=== PATIENT | female | born 1935 | race Caucasian/White ===

== ENCOUNTER → 2022-08-16 12:49 | Outpatient (BNVA) | payer OTHER, SELFPAY | PROVIDERS: PCP Student in an Organized Health Care Education/Training Program; Visit Provider Psychiatry & Neurology Neurology | DX: Z13.89 Encounter for screening for other disorder (principal) ==

== ENCOUNTER → 2022-09-02 09:36 | Outpatient (REF) | payer OTHER, SELFPAY | LOC: HO.SL 09:36 | PROVIDERS: PCP Student in an Organized Health Care Education/Training Program; Visit Provider Psychiatry & Neurology Neurology | DX: G47.33 Obstructive sleep apnea (adult) (pediatric) (principal) | CPT/HCPCS: 95806 ==

== ENCOUNTER 2022-11-30 12:30 | Outpatient (AMB) | payer OTHER, SELFPAY ==
[2022-11-30 12:32] VITALS: BP 108/86; PULSE 77; O2SAT 97; BMI 27.8
--- NOTE | 2022-11-30 12:32 | MHC.OFFVIS ---
Intake Vital Signs 11/30/22 12:32 Height 5 ft 1 in Weight 147 lb 4 oz BMI 27.8 BP 108/86 Blood Pressure Location Lt brachial Position Sitting Pulse 77 Pulse Source Pulse Oximeter Pulse Oximetry (%) 97 Oxygen Delivery Method Room Air Intake Visit Reasons: 3 mo for - Alzheimets/Dementia-confirmed Intake Note: Pt presents as a f/u for alzheimers/dementia. diarrhea is the reoccurring thing. And the new thing is she is wearing hearing aids now. Director Of Premium Seat Sales Required: No Allergies Sulfa (Sulfonamide Antibiotics) Adverse Reaction (Severe, Verified 11/30/22 12:37) Rash vancomycin Adverse Reaction (Severe, Verified 11/30/22 12:37) Rash ceftriaxone Adverse Reaction (Unknown, Verified 11/30/22 12:37) Unknown HPI HPI Comments History of Present Illness Details 87y/o female comes for further management of dementia.she castellanos shearing aids but feels it is too loud.she did not take citaopram regularly due to GI issues - diarrhea. Her home sleep study was significant for mild sleep apnea. SHe did not pick her CPAP she is accompanied by her son who helps with history. Her memory issues started about 5 years ago. 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 she is independent in most ADLs. her daughter in law helps with getting in and out of shower. she needs reminding to dress. 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 Mood stable - not motivated sleep is OK - she wakes up late 12noon and takes 2 hrs nap and sleeps at 11pm . she sleeps 1 2hrs a day. she snores loudly . [facility] Medical History (Updated 11/30/22 @ 12:52 by Gwen Mitchell MD) Atrial fibrillation CAD (coronary artery disease) Cognitive disorder Depression Diverticulosis Gall stones Hypersomnolence Hypothyroidism Loud snoring Lumbar spondylosis Mitral regurgitation Obstructive sleep apnea Uterine myoma Surgical History H/O lithotripsy Hx of appendectomy S/P removal of parathyroid gland Family History Mother Stroke Father Myocardial infarct Daughter Breast cancer Social History Alcohol intake: current Alcohol intake frequency: holidays/special occasions only Patient Tobacco Use Status: Never used Tobacco Use of substances other than those prescribed or required for medical reasons: No Physical Exam Vital Signs: Last Vital Signs Pulse 77 11/30/22 12:32 BP 108/86 11/30/22 12:32 Pulse Ox 97 11/30/22 12:32 Oxygen Delivery Method Room Air 11/30/22 12:32 BMI result Body Mass Index 27.8 Const Orientation/consciousness: patient oriented x3 HEENT Head: Yes normal to inspection and Yes normocephalic Eyes Pupils: Equal, round and reactive pupils present Neuro Other: mild hypohonia General: patient oriented x3, tone normal, moves all extremities and no focal motor deficits Cranial nerves: Yes Facial sensation intact/muscles of mastication intact, Yes Equal, round and reactive pupils present, Yes Bilaterally intact EOM present, Yes Nystagmus not present, Yes Normal facial strength present, Yes Midline tongue present, Yes Symmetric palate elevation present and Yes Ability to bilaterally elevate shoulders present Cognition (Neuro): normal cognition Gait exam (Neuro): Antalgic gait present and Festinating gait present Coordination: [id number] test normal Assessment & Plan Assessment & Plan (1) Cognitive disorder: Comment: multifactorial - mood, ? sleep apnea ? low blood pressure Code(s): F09 - Unspecified mental disorder due to known physiological condition (2) Depression: Code(s): F32.A - Depression, unspecified (3) Obstructive sleep apnea: Code(s): G47.33 - Obstructive sleep apnea (adult) (pediatric) Plan Trial AUtoPAP 5-20 cm of water- she is concerned about using mask. Retrial citalopram 10mg qd- concerned about GI side effects Patient says she does not like medications but will try citalopram Discussed about increasing physical activity Hearing aids Coding Level of Care Code Est Pt Level 4 (71098) Diagnoses Cognitive disorder F09 Depression F32.A Obstructive sleep apnea G47.33
== END 2022-11-30 13:30 | disposition home or self-care (01) ==
PROVIDERS: Visit Provider Psychiatry & Neurology Neurology
DX: I69.320 Aphasia following cerebral infarction (principal); F32.A Depression, unspecified; G47.33 Obstructive sleep apnea (adult) (pediatric)
CPT/HCPCS: 99214

== ENCOUNTER → 2022-11-30 12:30 | Outpatient (BNVA) | payer OTHER, SELFPAY | PROVIDERS: Visit Provider Psychiatry & Neurology Neurology ==

== ENCOUNTER 2023-02-09 15:33 | Outpatient (AMB) | payer OTHER, SELFPAY ==
--- NOTE | 2023-02-09 15:32 | MHC.OFFVIS ---
Intake Vital Signs 02/09/23 15:34 Height 5 ft 1 in Weight 142 lb BMI 26.8 BP 112/62 Blood Pressure Location Lt brachial Position Sitting Respiration 16 Pulse 76 Pulse Source Pulse Oximeter Pulse Oximetry (%) 97 Oxygen Delivery Method Room Air Intake Visit Reasons: Follow up- Alzhimers/Dementia Intake Note: Pt presents to the office for a 2 month follow up for Alzheimer's and dementia. She is here with son Garland. Son reports he feels her memory is worse. He does state, however, that he has noticed improvement with her depression. Her mood is better but her memory is worse . Software Implementation Project Manager Required: No Allergies Sulfa (Sulfonamide Antibiotics) Adverse Reaction (Severe, Verified 02/09/23 15:33) Rash vancomycin Adverse Reaction (Severe, Verified 02/09/23 15:33) Rash ceftriaxone Adverse Reaction (Unknown, Verified 02/09/23 15:33) Unknown Medication List - Last Reconciled 02/09/23 by Gwen Mitchell MD apixaban (Eliquis) 2.5 mg PO BID Bacillus coagulans (Digestive Advantage Probiotics-Prebiotic) cells PO cholecalciferol (vitamin D3) 37.5 mcg PO DAILY citalopram 10 mg PO DAILY denosumab (Prolia) 60 mg subcut [id number] methenamine hippurate 1 g PO BID metoprolol succinate ER 100 mg PO DAILY zpeuyvpi-puv-WW-lycopen-lutein 0.4 mg-300 mcg- 250 mcg (Centrum Silver) 1 tab PO DAILY HPI HPI Comments History of Present Illness Details 87y/o female comes for follow up of dementia.she has hearing aids but feels it is too loud.she got CPAP but unable to use it but is back on citalopram which helps her mood. she does not use her hearing aids . she is accompanied by her son who helps with history. Her memory issues started about 5 years ago. 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 She started with short term memory issues and now also has shelter issues.she has trouble remembering medications,has trouble recalling peoples names,has trouble remembering significant events( forgets trips, forgot she had stroke).she like watching sports but usually has trouble remembering. she is independent in most ADLs. her daughter in law helps with getting in and out of shower. she needs reminding to dress. 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 Mood stable - not motivated sleep is OK - she wakes up late 12noon and takes 2 hrs nap and sleeps at 11pm . she sleeps 1 2hrs a day. she snores loudly . [facility] Medical History Obstructive sleep apnea Depression Hypersomnolence Loud snoring Cognitive disorder Uterine myoma Mitral regurgitation Lumbar spondylosis Hypothyroidism Gall stones Diverticulosis CAD (coronary artery disease) Atrial fibrillation Surgical History S/P removal of parathyroid gland H/O lithotripsy Hx of appendectomy Family History Mother Stroke Father Myocardial infarct Daughter Breast cancer Social History Alcohol intake: current Alcohol intake frequency: holidays/special occasions only Patient Tobacco Use Status: Never used Tobacco Physical Exam Vital Signs: Last Vital Signs Pulse 76 02/09/23 15:34 Resp 16 02/09/23 15:34 BP 112/62 02/09/23 15:34 Pulse Ox 97 02/09/23 15:34 Oxygen Delivery Method Room Air 02/09/23 15:34 BMI result Body Mass Index 26.8 Const Orientation/consciousness: patient oriented x3 HEENT Head: Yes normal to inspection and Yes normocephalic Eyes Pupils: Equal, round and reactive pupils present Neuro Other: mild hypohonia General: patient oriented x3, tone normal, moves all extremities and no focal motor deficits Cranial nerves: Yes Facial sensation intact/muscles of mastication intact, Yes Equal, round and reactive pupils present, Yes Bilaterally intact EOM present, Yes Nystagmus not present, Yes Normal facial strength present, Yes Midline tongue present, Yes Symmetric palate elevation present and Yes Ability to bilaterally elevate shoulders present Cognition (Neuro): normal cognition Gait exam (Neuro): Antalgic gait present and Festinating gait present Coordination: [id number] test normal Assessment & Plan Assessment & Plan (1) Cognitive disorder: Comment: multifactorial - mood, ? sleep apnea ? low blood pressure Code(s): F09 - Unspecified mental disorder due to known physiological condition (2) Depression: Code(s): F32.A - Depression, unspecified (3) Obstructive sleep apnea: Code(s): G47.33 - Obstructive sleep apnea (adult) (pediatric) Plan Retrial memantine XR 14mg qd citalopram 10mg qd- Discussed about increasing physical activity Hearing aids Medications: New memantine 14 mg PO DAILY 30 ea 6RF Coding Level of Care Code Est Pt Level 4 (74086) Diagnoses Cognitive disorder F09 Depression F32.A Obstructive sleep apnea G47.33
[2023-02-09 15:34] VITALS: BP 112/62; PULSE 76; RESP 16; O2SAT 97; BMI 26.8
== END 2023-02-09 16:07 | disposition home or self-care (01) ==
PROVIDERS: PCP Student in an Organized Health Care Education/Training Program; Visit Provider Psychiatry & Neurology Neurology
DX: F03.93 Unspecified dementia, unspecified severity, with mood disturbance (principal); F06.31 Mood disorder due to known physiological condition with depressive features; G47.33 Obstructive sleep apnea (adult) (pediatric); I69.320 Aphasia following cerebral infarction
CPT/HCPCS: 99214

== ENCOUNTER → 2023-02-09 15:33 | Outpatient (BNVA) | payer OTHER, SELFPAY | PROVIDERS: PCP Student in an Organized Health Care Education/Training Program; Visit Provider Psychiatry & Neurology Neurology ==

== ENCOUNTER 2023-08-08 13:43 | Outpatient (AMB) | payer OTHER, SELFPAY ==
--- NOTE | 2023-08-08 13:44 | HO.NEPHOV ---
Vital Signs 08/08/23 13:48 Height 5 ft 1 in Weight 140 lb 8 oz BMI 26.5 BP 100/60 Blood Pressure Location Rt brachial Position Sitting Pulse 79 Pulse Source Pulse Oximeter Pulse Oximetry (%) 97 Oxygen Delivery Method Room Air Intake Visit Reasons: 6 mo f/u Alzheimers/Dementia-CONF Intake Note: Patient presents for a 6 month fu- Cognitive Disorder Extruding Press Adjuster Required: No Accompanied by: Son Allergies Sulfa (Sulfonamide Antibiotics) Adverse Reaction (Severe, Verified 08/08/23 13:51) Rash vancomycin Adverse Reaction (Severe, Verified 08/08/23 13:51) Rash ceftriaxone Adverse Reaction (Unknown, Verified 08/08/23 13:51) Unknown PFSH Medical History Obstructive sleep apnea Depression Hypersomnolence Loud snoring Cognitive disorder Uterine myoma Mitral regurgitation Lumbar spondylosis Hypothyroidism Gall stones Diverticulosis CAD (coronary artery disease) Atrial fibrillation Surgical History S/P removal of parathyroid gland H/O lithotripsy Hx of appendectomy Family History Mother Stroke Father Myocardial infarct Daughter Breast cancer Social History Alcohol intake: current Alcohol intake frequency: holidays/special occasions only Patient Tobacco Use Status: Never used Tobacco Physical Exam Vital Signs: Last Vital Signs Pulse 79 08/08/23 13:48 BP 100/60 08/08/23 13:48 Pulse Ox 97 08/08/23 13:48 Oxygen Delivery Method Room Air 08/08/23 13:48 BMI result Body Mass Index 26.5 Results Reviewed Nephrology Results: No Data to Display
[2023-08-08 13:48] VITALS: BP 100/60; PULSE 79; O2SAT 97; BMI 26.5
[2023-08-08 13:55] VITALS: BMI 26.5
--- NOTE | 2023-08-08 13:55 | A.OFFVIS_ITS ---
Vital Signs 08/08/23 13:48 08/08/23 13:55 Height 5 ft 1 in Weight 140 lb 8 oz BMI 26.5 26.5 BP 100/60 Blood Pressure Location Rt brachial Position Sitting Pulse 79 Pulse Source Pulse Oximeter Pulse Oximetry (%) 97 Oxygen Delivery Method Room Air Intake Visit Reasons: 6 mo f/u Alzheimers/Dementia-CONF Allergies Sulfa (Sulfonamide Antibiotics) Adverse Reaction (Severe, Verified 08/08/23 13:51) Rash vancomycin Adverse Reaction (Severe, Verified 08/08/23 13:51) Rash ceftriaxone Adverse Reaction (Unknown, Verified 08/08/23 13:51) Unknown Medication List - Last Reconciled 08/08/23 by Gwen Mitchell MD apixaban (Eliquis) 5 mg PO BID Bacillus coagulans (Digestive Advantage Probiotics-Prebiotic) cells PO cholecalciferol (vitamin D3) 37.5 mcg PO DAILY citalopram 10 mg PO DAILY denosumab (Prolia) 60 mg subcut [id number] memantine 14 mg PO DAILY methenamine hippurate 1 g PO DAILY metoprolol succinate ER 50 mg PO DAILY jwtczpaa-xtb-JR-lycopen-lutein 0.4 mg-300 mcg- 250 mcg (Centrum Silver) 1 tab PO DAILY HPI Comments Details: 88y/o female comes for follow up of dementia.she has hearing aids but feels it is too loud.she got CPAP but unable to use it but is back on citalopram which helps her mood. she does not use her hearing aids . she is accompanied by her son who helps with history. Her memory issues started about 6 years ago. 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 she is independent in most ADLs. her daughter in law helps with getting in and out of shower. she needs reminding to dress. 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 she sleeps 1 2hrs a day. she snores loudly . [facility] Medical History Obstructive sleep apnea Depression Hypersomnolence Loud snoring Cognitive disorder Uterine myoma Mitral regurgitation Lumbar spondylosis Hypothyroidism Gall stones Diverticulosis CAD (coronary artery disease) Atrial fibrillation Surgical History S/P removal of parathyroid gland H/O lithotripsy Hx of appendectomy Family History Mother Stroke Father Myocardial infarct Daughter Breast cancer Social History Alcohol intake: current Alcohol intake frequency: holidays/special occasions only Patient Tobacco Use Status: Never used Tobacco Physical Exam Vital Signs: Last Vital Signs Pulse 79 08/08/23 13:48 BP 100/60 08/08/23 13:48 Pulse Ox 97 08/08/23 13:48 Oxygen Delivery Method Room Air 08/08/23 13:48 BMI result Body Mass Index 26.5 HEENT Head: Yes normal to inspection and Yes normocephalic Eyes Pupils: Equal, round and reactive pupils present Neuro Other: mild hypohonia MOCA 18/30 General: tone normal, moves all extremities and no focal motor deficits Cranial nerves: Yes Facial sensation intact/muscles of mastication intact, Yes Equal, round and reactive pupils present, Yes Bilaterally intact EOM present, Yes Nystagmus not present, Yes Normal facial strength present, Yes Midline tongue present, Yes Symmetric palate elevation present and Yes Ability to bilaterally elevate shoulders present Cognition (Neuro): normal cognition Gait exam (Neuro): Antalgic gait present and Festinating gait present Coordination: tozzqc-of-jali test normal Assessment & Plan Assessment & Plan (1) Cognitive disorder: Comment: multifactorial - mood, ? sleep apnea ? low blood pressure- mOCA 18/30 Code(s): F09 - Unspecified mental disorder due to known physiological condition Category: Medical (2) Depression: Code(s): F32.A - Depression, unspecified Category: Medical (3) Obstructive sleep apnea: Code(s): G47.33 - Obstructive sleep apnea (adult) (pediatric) Category: Medical Plan Increase memantine XR 21mg qd citalopram 10mg qd- Discussed about increasing physical activity Hearing aids [facility] - for PT and speech Orders: Referrals [facility] Referral F09 - Unspecified mental disorder due to known physiological condition, M47.816 - Spondylosis without myelopathy or radiculopathy, lumbar region, R26.9 - Unspecified abnormalities of gait and mobility Medications: Changed From memantine 14 mg PO DAILY 30 ea 6RF To memantine 14 mg (0.6667 x 21 mg) PO DAILY 30 ea 1RF
== END 2023-08-08 14:28 | disposition home or self-care (01) ==
LOC: HO.HSMS 13:43
PROVIDERS: PCP Student in an Organized Health Care Education/Training Program; Visit Provider Psychiatry & Neurology Neurology
DX: F03.93 Unspecified dementia, unspecified severity, with mood disturbance (principal); R41.89 Other symptoms and signs involving cognitive functions and awareness; G47.33 Obstructive sleep apnea (adult) (pediatric)
CPT/HCPCS: 99214

== ENCOUNTER → 2023-08-08 13:43 | Outpatient (BNVA) | payer OTHER, SELFPAY | PROVIDERS: PCP Student in an Organized Health Care Education/Training Program; Visit Provider Psychiatry & Neurology Neurology ==

== ENCOUNTER 2024-02-07 12:14 | Outpatient (AMB) | payer OTHER, SELFPAY ==
--- NOTE | 2024-02-07 12:19 | A.OFFVIS_ITS ---
Vital Signs 02/07/24 12:23 Height 5 ft 1 in Weight 143 lb BMI 27.0 BP 80/50 L Blood Pressure Location Lt brachial Position Sitting Pulse 83 Pulse Source Pulse Oximeter Pulse Oximetry (%) 96 Oxygen Delivery Method Room Air Intake Visit Reasons: follow up Alzheimers/Dementia Intake Note: Patient presents for a 6 mo fu for Alzheimer/Dementia. Patient reports tiredness, SOB, and difficulty breathing. Geoscience Specialist Required: No Accompanied by: Son Allergies Sulfa (Sulfonamide Antibiotics) Adverse Reaction (Severe, Verified 02/07/24 12:25) Rash vancomycin Adverse Reaction (Severe, Verified 02/07/24 12:25) Rash ceftriaxone Adverse Reaction (Unknown, Verified 02/07/24 12:25) Unknown Medication List - Last Reconciled 02/07/24 by Gwen Mitchell MD apixaban (Eliquis) 5 mg PO BID Bacillus coagulans (Probiotic (B. coagulans)) cells PO DAILY cholecalciferol (vitamin D3) 25 mcg PO DAILY citalopram 10 mg PO DAILY 90 days denosumab (Prolia) 60 mg subcut [id number] memantine 28 mg PO DAILY 90 days methenamine hippurate 1 g PO DAILY metoprolol succinate ER 50 mg PO DAILY qfkjpxng-jri-NM-lycopen-lutein 0.4 mg-300 mcg- 250 mcg (Centrum Silver) 1 tab PO DAILY HPI Comments Details: 88y/o female comes for follow up of dementia.she has hearing aids and it helps.Her short term memory is worse. she is still noncompliant with hearing aids and her son feels that she does not hear most of the things. she saw her PCP and has been referred for home PT she got CPAP but unable to use it but is back on citalopram which helps her mood. History from last visit:she is accompanied by her son who helps with history. Her memory issues started about 6 years ago. 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 she is independent in most ADLs. her daughter in law helps with getting in and out of shower. she needs reminding to dress. 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 she sleeps 1 2hrs a day. she snores loudly . PFSH Medical History Obstructive sleep apnea Depression Hypersomnolence Loud snoring Cognitive disorder Uterine myoma Mitral regurgitation Lumbar spondylosis Hypothyroidism Gall stones Diverticulosis CAD (coronary artery disease) Atrial fibrillation Surgical History S/P removal of parathyroid gland H/O lithotripsy Hx of appendectomy Family History Mother Stroke Father Myocardial infarct Daughter Breast cancer Social History Alcohol intake: current Alcohol intake frequency: holidays/special occasions only Patient Tobacco Use Status: Never used Tobacco Physical Exam Vital Signs: Last Vital Signs Pulse 83 02/07/24 12:23 BP 80/50 L 02/07/24 12:23 Pulse Ox 96 02/07/24 12:23 Oxygen Delivery Method Room Air 02/07/24 12:23 BMI result Body Mass Index 27.0 HEENT Head: Yes normal to inspection and Yes normocephalic Eyes Pupils: Equal, round and reactive pupils present Neuro General: tone normal, moves all extremities and no focal motor deficits Cranial nerves: Yes Facial sensation intact/muscles of mastication intact, Yes Equal, round and reactive pupils present, Yes Bilaterally intact EOM present, Yes Nystagmus not present, Yes Normal facial strength present and Yes Midline tongue present Cognition (Neuro): abnormal cognition Coordination: [id number] test normal Assessment & Plan Assessment & Plan (1) Cognitive disorder: Comment: multifactorial - mood, ? sleep apnea ? low blood pressure- mOCA Code(s): F09 - Unspecified mental disorder due to known physiological condition Category: Medical (2) Depression: Code(s): F32.A - Depression, unspecified Category: Medical Qualifiers: Depression Type: unspecified Qualified Code(s): F32.A - Depression, unspecified (3) Obstructive sleep apnea: Code(s): G47.33 - Obstructive sleep apnea (adult) (pediatric) Category: Medical Plan Increase memantine XR 28mg qd citalopram 10mg qd-does not get consistently Will send for second opinion - [facility] cardiology for MR and Atrial fibrillation Discussed about increasing physical activity Hearing aids VNA - for PT and speech- referred by PCP Orders: Referrals Interventional Cardiology Referral I34.0 - Nonrheumatic mitral (valve) insuff iciency Medications: Changed From memantine 21 mg PO DAILY 90 days 90 ea 1RF To memantine 28 mg PO DAILY 90 days 90 ea 1RF Coding Level of Care Code Est Pt Level 4 (58430) Complex EM visit Add On G2211 Diagnoses Cognitive disorder F09 Depression, unspecified depression type F32.A Depression Type: unspecified Obstructive sleep apnea G47.33
[2024-02-07 12:23] VITALS: BP 80/50; PULSE 83; O2SAT 96; BMI 27.0
== END 2024-02-07 13:01 | disposition home or self-care (01) ==
PROVIDERS: PCP Student in an Organized Health Care Education/Training Program; Visit Provider Psychiatry & Neurology Neurology
DX: G47.33 Obstructive sleep apnea (adult) (pediatric) (principal); F32.A Depression, unspecified; F09 Unspecified mental disorder due to known physiological condition
CPT/HCPCS: 99214; G2211

== ENCOUNTER → 2024-02-07 12:14 | Outpatient (BNVA) | payer OTHER, SELFPAY | PROVIDERS: PCP Student in an Organized Health Care Education/Training Program; Visit Provider Psychiatry & Neurology Neurology | DX: F09 Unspecified mental disorder due to known physiological condition (principal); M47.816 Spondylosis without myelopathy or radiculopathy, lumbar region; R26.9 Unspecified abnormalities of gait and mobility; F32.A Depression, unspecified; G47.33 Obstructive sleep apnea (adult) (pediatric) ==

== ENCOUNTER 2025-01-15 14:26 | Outpatient (AMB) | payer OTHER, SELFPAY ==
--- OUTSIDE RECORDS SUMMARY | 2025-01-11 10:50 | XMS_ITS | Encounter Summary ---
Author Organization [facility] Address [address] [place] [address] Care Team Providers Care Practice Performance Manager Name Role Phone Kasey Anand MD Primary Care Provider Reason for Referral * Imaging (Routine) - Authorized Specialty Diagnoses / Procedures Referred By Contac t Referred To Contact Radiology Diagnoses Age-related osteoporosis without current pathological fracture Procedures BD Bone Density DXA Axial Skeleton Marlin Xiong MD [address] [place] [phone] Phone: tel: fax: [facility] Referral ID Status Reason Start Date Expiration Date V isits Requested Visits Authorized [id number] Authorized 06/28/2024 06/28/2025 1 1 Reason for Visit * Imaging (Routine) - Authorized Specialty Diagnoses / Procedures Referred By Contac t Referred To Contact Radiology Diagnoses Age-related osteoporosis without current pathological fracture Procedures BD Bone Density DXA Axial Skeleton Marlin Xiong MD [address] [place] [address] Phone: tel: fax: [facility] Referral ID Status Reason Start Date Expiration Date V isits Requested Visits Authorized [id number] Authorized 06/28/2024 06/28/2025 1 1 Encounter Details Date Type Department Care Team (Latest Contact Info) Description 01/11/2025 10:50 AM EDT - 01/11/2025 11:59 PM EDT Hospital Encounter Bone Density - [place] [address] [place] [phone] Age-related osteoporosis without current pathological fracture Discharge Disposition: Home or Self Care Social History Tobacco Use Types Packs/Day Years Used Date Smoking Tobacco: Never Smokeless Tobacco: Never Alcohol Use Standard Drinks/Week Comments Yes 1 (1 standard drink = 0.6 oz pur e alcohol) Housing Instability Answer Date Recorde d Are you worried that in the next 2 months you may not have stable housing? No 05/23/2024 Food Access & Nutrition Answer Date Rec orded Do you have access to a vari ety of food including fruits and vegetables? Yes 05/23/2024 Access to Healthcare Answer Date Record ed Within the last 3 months, ho w many times did you visit the emergency department for your medical care? 0 05/23/2024 Health Literacy Answer Date Recorded How often do you need to hav e someone help you when you read instructions, pamphlets, or other written material from your doctor or pharmacy? Sometimes 05/23/2024 Caregiver: How often do you need to have someone help you when you read instructions, pamphlets, or other written material from your doctor or pharmacy? Not on file 05/23/2024 Financial Risk Answer Date Recorded How hard is it for you to pa y for the very basics like food, housing, medical care, and air conditioning / heating? Not very hard 05/23/2024 Transportation Answer Date Recorded Has the lack of transportati on kept you from meetings, work, or from getting things needed for daily living? No Has the lack of transportati on kept you from medical appointments or from getting medications? No 05/23/2024 Social Isolation Answer Date Recorded How often do you feel lonely or isolated from th ose around you? Never 05/23/2024 Food Risk Answer Date Recorded Within the past 12 months we worried whether our food would run out before we got money to buy more. Never true 05/23/2024 Within the past 12 months th e food we bought just didn't last and we didn't have money to get more. Never true 05/23/2024 Dependent Care Answer Date Recorded Do you need help finding or paying for care for your loved ones. For example, child care centre director or elderly care for an older adult? No 05/23/2024 Education Answer Date Recorded Do you think completing more education or training, like finishing a GED, going to college, or learning a trade, would be helpful for you? No 05/23/2024 Employment and Income Answer Date Recor ded During the last four weeks, have you been actively looking for work? No 05/23/2024 Living Situation Answer Date Recorded What is your living situation? Unrecognized valu e 05/23/2024 Comments No Sex and Gender Information Value Date Recorded Sex Assigned at Not on file Legal Sex Female 11:37 AM EST Gender Identity Not on file Sexual Orientation Not on file documented as of this encounter Medications at Time of Discharge acetaminophen (TYLENOL) 325 mg tablet Take by mouth every 6 (six) hours if needed for mild pain. apixaban (ELIQUIS) 2.5 mg tablet Take 1 tablet (2.5 mg total) by mouth 2 (two) times a day. cholecalciferol (VITAMIN D-3) 50 mcg (2,000 unit) tablet Take 1 tablet (2,000 Units total) by mouth 1 (one) time each day. citalopram (CeleXA) 10 mg tablet Take 1 tablet (10 mg total) by mouth 1 (one) time each day. Take 1 tablet (10 mg total) by mouth daily lactobacillus acidoph-l.bulgar 100 million cell granules in packet Take 1 packet by mouth. methenamine hippurate (HIPREX) 1 gram tabletIndications :Urinary tract infection, site not specified TAKE 1 TABLET BY MOUTH EVERY DAY 90 tablet 01/07/2025 midodrine (PROAMATINE) 5 mg tablet TAKE 1 TABLET BY MOUTH TWICE A DAY 180 tablet 1 12/18/2024 multivitamin with minerals tablet Take 1 tablet by mouth 1 (one) time each day. Prolia 60 mg/mL syringe syringe INJECT 1 SYRINGE UNDER THE SKIN ONCE EVERY 6 MONTHS 60 mL 1 05/22/2024 documented as of this encounter Discharge Disposition Disposition Code Departure Means Destination Home or Self Care documented in this encounter Plan of Treatment Upcoming Encounters Date Type Department Care Team (Late st Contact Info) Description 01/21/2025 11:00 AM EDT Office Visit [facility]ocr[facility] [place] [address] [place] [phone] Marlin Xiong MD [address] [place] [address] 01/21/2025 12:00 PM EDT Clinical Support Endocrinology - [place] [address] [place] [address] 02/14/2025 1:40 PM EDT Office Visit [facility] [address] [facility] [address] [place] [phone] Caridad Porter [facility] [place] [phone] 03/05/2025 3:30 PM EST Office Visit Adult Medicine - [place] [address] [place] [phone] Oziel Preciado PA [address] [place] [address] Pending Results Name Type Priority Associated Diagnoses Date /Time BD Bone Density DXA Axial Skeleton Imaging Routine Age-related osteoporosis without current pathological fracture 01/11/2025 11:17 AM EDT Scheduled Orders Name Type Priority Associated Diagnoses Orde r Schedule BD Bone Density DXA Axial Skeleton Imaging Routine Age-related osteoporosis without current pathological fracture Once for 1 Occurrences starting 01/11/2025 until 01/11/2025 documented as of this encounter Visit Diagnoses Diagnosis Age-related osteoporosis without current pathological fracture documented in this encounter Additional Health Concerns Assessment Noted Time PHQ-9 Depression Total Score: 0 05/23/19 8:26 AM EST A fall risk assessment has been complete d for the patient 05/23/2024 10:30 AM EST documented as of this encounter Care Teams Practice Performance Manager Relationship Specialty Start Date End Date Kasey Anand MD [address] [place] [address] PCP - General Internal Medicine 05/14/24 documented as of this encounter
--- NOTE | 2025-01-15 14:19 | MHC.OFFVIS ---
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 coagulans)) cells PO DAILY cholecalciferol (vitamin D3) 25 mcg PO DAILY citalopram 10 mg PO DAILY 90 days denosumab (Prolia) 60 mg subcut [id number] methenamine hippurate 1 g PO DAILY midodrine 5 mg PO BID fmugfmep-ujz-AT-lycopen-lutein 0.4 mg-300 mcg- 250 mcg (Centrum Silver) 1 tab PO DAILY HPI Comments Details: 89y/o female comes for follow up of dementia. In October 2024 she was admitted for failure to thrive . she refuses to eat and drinks 2 ensures she is refusing to eat sweets . Memantine and metroprolol was stopped as her blood pressure was low. she has hearing aids and it helps.Her short term memory is worse. History from last visit:she is accompanied by her son who helps with history. Her memory issues started about 6 years ago. 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 She started with short term memory issues and now also has manager long term care issues.she has trouble remembering medications,has trouble recalling peoples names,has trouble remembering significant events( forgets trips, forgot she had stroke).she like watching sports but usually has trouble remembering. she is independent in most ADLs. her daughter in law helps with getting in and out of shower. she needs reminding to dress. 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 she sleeps 1 2hrs a day. she snores loudly . [facility] Medical History Obstructive sleep apnea Depression Hypersomnolence Loud snoring Cognitive disorder Uterine myoma Mitral regurgitation Lumbar spondylosis Hypothyroidism Gall stones Diverticulosis CAD (coronary artery disease) Atrial fibrillation Surgical History S/P removal of parathyroid gland H/O lithotripsy Hx of appendectomy Family History Mother Stroke Father Myocardial infarct Daughter Breast cancer Social History Alcohol intake: current Alcohol intake frequency: holidays/special occasions only Patient Tobacco Use Status: Never used Tobacco Physical Exam HEENT Head: Yes normal to inspection and Yes normocephalic Neuro Other: gait- walker , good stride stable Telehealth Telehealth Telehealth Platform: adQ Location of provider rendering services: practice address Patient Identification confirmed using: Name, : Yes Telehealth method: video Patient verbally consented to treatment: Yes Patient verbally consented to billing insurance company: Yes Patient informed of any privacy concerns related to visit: Yes Assessment & Plan Assessment & Plan (1) Cognitive disorder: Comment: multifactorial - mood, ? sleep apnea ? low blood pressure- mOCA Code(s): F09 - Unspecified mental disorder due to known physiological condition Category: Medical (2) Depression: Code(s): F32.A - Depression, unspecified Category: Medical Qualifiers: Depression Type: unspecified Qualified Code(s): F32.A - Depression, unspecified (3) Obstructive sleep apnea: Code(s): G47.33 - Obstructive sleep apnea (adult) (pediatric) Category: Medical Plan i will trial her on mirtazapine 7.5 mg qhs Discussed about increasing physical activity - she is doing better with home therapy Hearing aids Medications: New mirtazapine 7.5 mg PO BEDTIME 30 tabs 6RF Discontinued citalopram Discontinued Reason: Doctor's Order 10 mg PO DAILY 90 days 90 tabs 1RF Coding Level of Care Code Tele Est Pt Level 4 (29788) Diagnoses Cognitive disorder F09 Depression, unspecified depression type F32.A Depression Type: unspecified Obstructive sleep apnea G47.33 Time Spent (min) 22
--- OUTSIDE RECORDS SUMMARY | 2025-01-15 15:53 | XMS_ITS ---
[facility] Name [facility] Organization [facility] Encounters Encounter Type Encounter Reason Primary Diagnosis Location Date Ambulatory [facility] 04/21/2021 Care Team Organization Name Specialty Phone Email Start Date End Da te HSX 08/25/2024 [facility] 07/29/202306/15 [facility] [employer] 06/21/2023 09/18/2023 [facility] - April ADT 11/26/2022 09/28/2024 [facility] - April CCDA 11/26/2022 09/15/2024 [facility] Swati Araiza DO Primary Care 09/24/202211/16 [facility] 04/21/2021 06/03/2021 [facility] 04/13/2021 12/05/2023
--- OUTSIDE RECORDS SUMMARY | 2025-01-15 15:53 | XMS_ITS | Clinical Summary ---
Author Organization [address] [place] [address] [place] [phone] Phone Care Team Providers Care Community Development Manager Name Role Phone Kasey Anand MD Primary Care Provider Allergies Active Allergy Reactions Criticality Noted Date Comments Sulfa (Sulfonamide Antibiotics) 03/18 Vancomycin 04/05/2022 Medications citalopram (CeleXA) 10 mg tablet Take 1 tablet (10 mg total) by mouth 1 (one) time each day. Take 1 tablet (10 mg total) by mouth daily Active Prolia 60 mg/mL syringe syringe INJECT 1 SYRINGE UNDER THE SKIN ONCE EVERY 6 MONTHS 60 mL 1 5 Active lactobacillus acidoph-l.bulg ar 100 million cell granules in packet Take 1 packet by mouth. Active cholecalcifero l (VITAMIN D-3) 50 mcg (2,000 unit) tablet Take 1 tablet (2,000 Units total) by mouth 1 (one) time each day. Active multivitamin with minerals tablet Take 1 tablet by mouth 1 (one) time each day. Active acetaminophen (TYLENOL) 325 mg tablet Take by mouth every 6 (six) hours if needed for mild pain. Active apixaban (ELIQUIS) 2.5 mg tablet Take 1 tablet (2.5 mg total) by mouth 2 (two) times a day. Active midodrine (PROAMATINE) 5 mg tablet TAKE 1 TABLET BY MOUTH TWICE A DAY 180 tablet 1 5 Active methenamine hippurate (HIPREX) 1 gram tabletIndicati ons:Urinary tract infection, site not specified TAKE 1 TABLET BY MOUTH EVERY DAY 90 tablet 5 Active methenamine hippurate (HIPREX) 1 gram tabletIndicati ons:Urinary tract infection, site not specified TAKE 1 TABLET BY MOUTH EVERY DAY 90 tablet 1 5 01/08/20 Discontinued midodrine (PROAMATINE) 5 mg tablet Take 1 tablet (5 mg total) by mouth 2 (two) times a day. 60 tablet 5 12/19/19 Discontinued Active Problems Problem Noted Date Diagnosed Date History of CVA (cerebrovascular accident) 2024 Depression 05/23/2024 Age-related osteoporosis wit hout current pathological fracture 05/23/2024 Chronic midline low back pain 04/05/2022 Paroxysmal atrial fibrillation ([facility] V24, [facility] V28) 04/05/2022 Moderate late onset Alzheime r's dementia without behavioral disturbance, psychotic disturbance, mood disturbance, or anxiety ([facility] V24, [facility] V28) 04/05/2022 Cerebrovascular accident (CV A) due to thrombosis of right middle cerebral artery ([facility] V24, [facility] V28) 04/05/2022 Nonrheumatic mitral valve regurgitation 04/05/20 Assessment & Plan (11/14/2024 5:59 AM EDT): Axillary lymphadenopathy 12/27/2018 Encounters Date Type Department Care Team Description 01/11/2025 10:50 AM EDT - 01/11/2025 11:59 PM EDT Hospital Encounter Bone Density - [place] [address] [place] [address] Age-related osteoporosis without current pathological fracture Discharge Disposition: Home or Self Care 12/25/2024 Telephone Endocrinology - [address] [phone] Marlin Xiong MD 11/29/2024 2:45 PM EDT Office Visit Adult Medicine [address] [phone] Kasey Anand MD Moderate late onset Alzheimer's dementia without behavioral disturbance, psychotic disturbance, mood disturbance, or anxiety (CMS/HCC V24, CMS/HCC V28) (Primary Dx); Paroxysmal atrial fibrillation (CMS/HCC V24, CMS/HCC V28); Hypotension, unspecified hypotension type 11/13/2024 1:40 PM EDT Office Visit [facility] - [address] [place] [phone] Shahla Gaytan MD Permanent atrial fibrillation (CMS/HCC V24, CMS/HCC V28) (Primary Dx); Chronic diastolic congestive heart failure (CMS/HCC V24, CMS/HCC V28); Nonrheumatic mitral valve regurgitation; Idiopathic hypotension; Severe vascular dementia without behavioral disturbance, psychotic disturbance, mood disturbance, or anxiety (CMS/HCC V24, CMS/HCC V28) 11/09/2024 Telephone Adult [address] [phone] Marlen Cain [place] 11/08/2024 1:30 PM EDT Office Visit Adult [address] [phone] Kasey Anand MD Hospital discharge follow-up (Primary Dx); Moderate late onset Alzheimer's dementia without behavioral disturbance, psychotic disturbance, mood disturbance, or anxiety (CMS/HCC V24, CMS/HCC V28); History of CVA (cerebrovascular accident); Fall, sequela; Paroxysmal atrial fibrillation (CMS/HCC V24, CMS/HCC V28); Nonrheumatic mitral valve regurgitation; Age-related osteoporosis without current pathological fracture; Hypotension, unspecified hypotension type 11/01/2024 Telephone Adult [facility] [address] [place] [phone] Kasey Anand MD 11/01/2024 Telephone Adult [address] [phone] Kasey Anand MD 10/27/2024 Telephone [facility] - [address] [place] [phone] [facility] Months Immunizations Immunization Administration Dates Next Due Influenza Quadravalent, 0.5m l (Fluzone High-dose) 65yo and older 03/08/2021 Influenza Quadravalent, MDCK , 0.5ml, preservative free (Flucelvax) 6mo and older 06/19/2019 Influenza trivalent, 0.5mL ( Fluad) 65yo and older 01/17/2024,03/01/2021 Influenza trivalent, 0.5mL ( Fluzone High-dose) 65yo and older 05/11/2023,05/08/2020,12/27/2018,05/28 Pfizer SARS-CoV-2 COVID-19, mRNA, LNP-S, preservative free 07/04/2020,06/22/2020,05/30/2020,05/23 Pneumococcal conjugate 13 va lent (Prevnar 13, PCV13) 2mo and older 12/27/2018,06/12/2018 Pneumococcal polysaccharide 23 valent (Pneumovax 23) 2yo and older 06/19/2019,05/04/2018 Tdap Tetanus diptheria acell ular pertussis (Boostrix; Adacel) 7yo and older 02/28/2022 Surgical History Surgery Date Site/Laterality Comments APPENDECTOMY PROCEDURE:APPENDECTOMY KIDNEY STONE SURGERY PROCEDURE:KIDNEY STONE SURGERY OTHER SURGICAL HISTORY PROCEDURE:MOHS SURGERY;COMMENT:basal cell removal PARATHYROIDECTOMY PROCEDURE:PARATHYROIDECTOMY THYROID SURGERY PROCEDURE:THYROID SURGERY OTHER SURGICAL HISTORY PROCEDURE: MOHS' CHEMOSURGERY, ADD'L SPECIMENS OTHER SURGICAL HISTORY PROCEDURE: HISTORICAL PARATHYROID SURGERY; COMMENT: 2 parathyroid APPENDECTOMY PROCEDURE: HISTORICAL APPENDECTOMY APPENDECTOMY PROCEDURE: OK APPENDECTOMY Medical History Medical History Date Comments Atrial fibrillation (CMS/HCC V24, CMS/HCC V28) DX:Atrial fibrillation (HCC) Stroke (CMS/HCC V24, CMS/HCC V28) DX:Stroke (HCC) Kidney stones 05/04/2018 DX:Kidney stones ; COMMENT: S/p lithotripsy,laser surgery. Atrial fibrillation (CMS/HCC V24, CMS/HCC V28) 05/04/2018 DX:Atrial fibrillation (HCC) ; COMMENT: Diagnosed 3 years back on Eliquis 2.5mg bid Gall stones 05/11/2018 DX:Gall stones Hydronephrosis of right kidney 06/01/2018 D X:Hydronephrosis of right kidney; COMMENT: Mild Aorto-iliac atherosclerosis (CMS/HCC V24) 06/01/2018 DX:Aorto-iliac atheroscleros is (HCC); COMMENT: Abdominal Pelvic CT 06/18/14 Diverticulosis of colon 06/01/2018 DX:Diver ticulosis of colon Hepatic lesion 06/01/2018 DX:Hepatic lesio n; COMMENT: Abdomen Pelvic CT 06/18/14 indeterminate solid R hepatic lesion. Bilateral pelvic & lesser retroperitoneal and R retroperitoneal shamir disease. CT 05/07/14- Cyst dome of liver . Lumbar spondylosis 06/01/2018 DX:Lumbar spo ndylosis Microhematuria 05/05/2018 DX:Microhematuri a Uterine myoma 06/01/2018 DX:Uterine myoma CAD (coronary artery disease) 06/01/2018 DX :CAD (coronary artery disease) History of basal cell carcinoma (BCC) 06/01/2018 DX:History of basal cell carcinoma (BCC); COMMENT: L nostril Hypoparathyroidism (CMS/HCC V24) 05/05/2018 DX:Hypoparathyroidism (HCC); COMMENT: Parathyroidectomy - 2 glands removed. Lymphocytosis 06/01/2018 DX:Lymphocytosis Moderate mitral regurgitation 06/01/2018 DX :Moderate mitral regurgitation; COMMENT: ECHO 07/30/11 . Estimated EF =65 % Family History Medical History Relation Name Comments Breast cancer Daughter 1 Cancer Daughter 1 daughter Breast cancer Daughter 2 Heart attack Father in his 50's. Di ed age 61 Heart disease Father Stroke Mother Dementia Relation Name Status Comments Daughter 1 Daughter 2 Father Mother Social History Tobacco Use Types Packs/Day Years Used Date Smoking Tobacco: Never Smokeless Tobacco: Never Tobacco Cessation:Counseling Given: Not Answered Alcohol Use Standard Drinks/Week Comments Yes 1 [...] care for your loved ones. For example, children's entertainer or elderly care for an older adult? [...] on file Sexual Orientation Not on file Obstetrics History Last Filed Vital Signs Vital Sign Reading Time Taken Comments Blood Pressure 104/60 11/29/2024 2:15 PM EDT Pulse 69 11/29/2024 2:15 PM EDT Temperature 36.2 C (97.1 F) 11/29/2024 2:15 PM EDT Respiratory Rate 16 11/29/2024 2:15 PM EDT Oxygen Saturation 97% 11/13/2024 2:15 PM EDT Inhaled Oxygen Concentration - - Weight 62 kg (136 lb 9.6 oz) 11/29/2024 2:15 PM EDT Height 150 cm (4' 11.06 ) 11/29/2024 2:15 PM EDT Body Mass Index 27.54 11/29/2024 2:15 PM EDT Plan of Treatment Upcoming Encounters Date Type Department Care Team (Late st Contact Info) Description 01/21/2025 11:00 AM EDT Office Visit Endocrinology - [address] [phone] Marlin Xiong MD [address] [place] [address] 01/21/2025 12:00 PM EDT Clinical Support [facility] - [address] [phone] 02/14/2025 1:40 PM EDT Office Visit [facility] - [facility] [address] [facility] [address] [place] [phone] Caridad Porter PA [address] [place] [address] [place] [phone] 03/05/2025 3:30 PM EST Office Visit Adult Medicine - [place] [address] [place] [phone] Oziel Preciado PA [address] [place] [address] Health Maintenance Due Date Last Done Comments Hepatitis A Vaccines (1 of 2 - Risk 2-dose series) 02/26/1954 Zoster Vaccines (1 of 2) 02/26/1954 Hepatitis B Vaccines (1 of 3 - Risk 3-dose series) 1996 RSV Immunization Adult Patients (1 - 1-dose 75+ series) 02/26/2011 COVID-19 Vaccine ( season) 2024 07/04/2020, 06/22/2020, 05/30/2020, Additional history exists Influenza Vaccine (#1) 2024 , 05/11/2023, 03/08/2021, Additional history exists Falls Risk Assessment 05/23/2025 05/23/2024 Medicare Annual Wellness Visit 05/23/2025 05/23/2024 Social Influencers of Health Screening 05/23/2025 05/23/2024 Hypertension/CHF/CAD Annual BMP Blood Test 07/16/2025 01/15/2025, 07/16/2024, 06/28/2024, Additional history exists Cholesterol Screening (Lipid Panel) 05/23/2029 05/23/2024, 01/17/2024, 10/18/2019 Osteoporosis Screening (Bone Density Screening) 07/31/2031 07/30/2021 DTaP,Tdap,and Td Vaccines (2 - Td or Tdap) 02/29/2032 02/28/2022 Pneumococcal Vaccine: 50+ Years Completed 06/19/2019, 12/27/2018, 06/12/2018, Additional history exists Depression Screening Completed 05/23/2024 HIB Vaccines Aged Out No longer eligi ble based on patient's age to complete this topic HPV Vaccines Aged Out No longer eligi ble based on patient's age to complete this topic IPV Vaccines Aged Out No longer eligi ble based on patient's age to complete this topic MMR Vaccines Aged Out No longer eligi ble based on patient's age to complete this topic Meningococcal ACWY Vaccine Aged Out N o longer eligible based on patient's age to complete this topic Meningococcal B Vaccine Aged Out No l onger eligible based on patient's age to complete this topic RSV Immunization Patients Under 20 months Aged Out No longer eligible based on patient's age to complete this topic Varicella Vaccines Aged Out No longer eligible based on patient's age to complete this topic Procedures Procedure Name Priority Date/Time Associated Diagnosis Comments BUN Routine 01/15/2025 11:42 AM EDT Age-related osteoporosis without current pathological fracture CREATININE, SERUM Routine 01/15/2025 11: 42 AM EDT Age-related osteoporosis without current pathological fracture ALBUMIN Routine 01/15/2025 11:42 AM EDT Age-related osteoporosis without current pathological fracture VITAMIN D 25 HYDROXY Routine 01/15/2025 11:42 AM EDT Age-related osteoporosis without current pathological fracture CALCIUM Routine 01/15/2025 11:42 AM EDT Age-related osteoporosis without current pathological fracture ECG 12-LEAD Routine 11/13/2024 2:20 PM EDT Permanent atrial fibrillation (CMS/HCC V24, CMS/HCC V28) Chronic diastolic congestive heart failure (CMS/HCC V24, CMS/HCC V28) CT CHEST/ABDOMEN/PELV IS WO CONTRAST Routine 11/08/2024 4:41 PM EDT MR LUMBAR SPINE W CONTRAST Routine 11/08/2024 4:[address] ANGIO HEAD WO AND/OR W CONTRAST Routine 11/08/2024 4:[address] ABDOMEN PELVIS W CONTRAST Routine 11/08/2024 4:[address] ANGIO HEAD/NECK WO AND/OR W CONTRAST Routine 11/08/2024 4:[address] ANGIO HEAD WO AND/OR W CONTRAST Routine 11/08/2024 4:31 PM EDT ECHO OUTSIDE IMAGES/REPORT Routine 11/08/2024 1:59 PM EDT EXTERNAL ECHO Routine 10/27/2024 10:17 AM EDT LIPID PANEL WITH REFLEX TO DIRECT LDL Routine 05/23/2024 11:36 AM EST Medicare annual wellness visit, subsequent Moderate late onset Alzheimer's dementia without behavioral disturbance, psychotic disturbance, mood disturbance, or anxiety (CMS/HCC V24, CMS/HCC V28) Paroxysmal atrial fibrillation (CMS/HCC V24, CMS/HCC V28) Nonrheumatic mitral valve regurgitation Age-related osteoporosis without current pathological fracture Depression, unspecified depression type History of CVA (cerebrovascular accident) Encounter for lipid screening for cardiovascular disease DXA BONE DENSITY STUDY 1+ SITS AXIAL SKEL Routine 07/30/2021 9:45 AM EDT Encounter for screening for osteoporosis from Last 3 Months or Most Recently Relevant to Health Maintenance Results * (ABNORMAL) Creatinine (01/15/2025 11:42 AM EDT) Creatinine 1.18(H) 0.50 - 1.10 mg/dL LAB CHEMISTRY METHOD 01/15/2025 2:24 PM EDT [facility] eGFR 45(L) >=60 mL/min/1. 73m2 LAB CHEMISTRY METHOD 01/15/2025 2:24 PM EDT [facility] Comment:Calculation based on the Chronic Kidney Disease Epidemiology Collaboration (CKD-EPI) equation refit without adjustment for race. Blood Venous blood specimen / Unknown Venipuncture / Unknown 01/15/2025 11:42 AM EDT 01/15/2025 11:42 AM EDT us Marlin Xiong MD LAB BLOOD ORDERABLES Final Resul t Performing Organization Address City/[facility] Co de Phone Number [facility] [address] [place] [address], * Vitamin D 25 hydroxy (01/15/2025 11:42 AM EDT) Vit D, 25-Hydroxy 52.0 30.0 - 80.0 ng/mL LAB CHEMISTRY METHOD 01/15/2025 3:13 PM EDT [facility] Blood Venous blood specimen / Unknown Venipuncture / Unknown 01/15/2025 11:42 AM EDT 01/15/2025 11:42 AM EDT us Marlin Xiong MD LAB BLOOD ORDERABLES Final Resul t Performing Organization Address City/[facility]/ZIP Co de Phone Number [facility] [address] [place] [address], [place] [phone] * BUN (01/15/2025 11:42 AM EDT) BUN 18 5 - 25 mg/dL LAB CHEMISTRY METHOD 01/15/2025 2:24 PM EDT [facility] Blood Venous blood specimen / Unknown Venipuncture / Unknown 01/15/2025 11:42 AM EDT 01/15/2025 11:42 AM EDT us Marlin Xiong MD LAB BLOOD ORDERABLES Final Resul t Performing Organization Address [facility] de Phone Number [facility] [address] [place] [address], [place] [phone] * (ABNORMAL) Calcium (01/15/2025 11:42 AM EDT) Calcium 11.2(H) 8.5 - 10.5 mg/dL LAB CHEMISTRY METHOD 01/15/2025 2:24 PM EDT [facility] Blood Venous blood specimen / Unknown Venipuncture / Unknown 01/15/2025 11:42 AM EDT 01/15/2025 11:42 AM EDT us Marlin Xiong MD LAB BLOOD ORDERABLES Final Resul t Performing Organization Address [facility] de Phone Number [facility] [address] [place] [address], [place] [phone] * (ABNORMAL) Albumin (01/15/2025 11:42 AM EDT) Albumin 3.1(L) 3.2 - 5.0 g/dL LAB CHEMISTRY METHOD 01/15/2025 2:24 PM EDT [facility] Blood Venous blood specimen / Unknown Venipuncture / Unknown 01/15/2025 11:42 AM EDT 01/15/2025 11:42 AM EDT us Marlin Xiong MD LAB BLOOD ORDERABLES Final Resul t Performing Organization Address City/[facility]/ZIP Co de Phone Number [facility] [address] [place] [address], * ECG 12 lead (11/13/2024 2:20 PM EDT) Ventricular Rate ECG 83 BPM GEMUSE Atrial Rate 416 BPM GEMUSE QRS Duration 76 ms GEMUSE Q-T Interval 376 ms GEMUSE QTc 441 ms GEMUSE R [place] 31 degrees GEMUSE T [place] -4 degrees GEMUSE ECG Interpretation Atrial fibrillation When compared with ECG of 14-MAY-2024 13:14, No significant change was found Confirmed by MISAEL GAYTAN ([id number]) on 11/14/2024 5:12:59 AM GEMUSE 11/13/2024 2:20 PM EDT 11/14/2024 5:12 AM EDT Result [facility] Shahla Gaytan MD ECG ORDERABLES Final Resu lt GEMUSE * CT Chest/Abdomen/Pelvis wo Contrast (11/08/2024 4:41 PM EDT) Anatomical Region Laterality Modality Body Computed Tomogra phy Historical Provider IMG CT PROCEDURES Final R esult * MR Lumbar Spine w Contrast (11/08/2024 4:40 PM EDT) Anatomical Region Laterality Modality L-spine, Spine Magnetic Resonan ce Historical Provider IMG MRI PROCEDURES Final Result * CT Angio Head wo and/or w Contrast (11/08/2024 4:38 PM EDT) Only the most recent of2 resultswithin the time period is included. Anatomical Region Laterality Modality Head and Neck Computed Tomogra phy Historical Provider IMG CT PROCEDURES Final R esult * CT Abdomen Pelvis w Contrast (11/08/2024 4:36 PM EDT) Anatomical Region Laterality Modality Body Computed Tomogra phy Historical Provider IMG CT PROCEDURES Final R esult * CT Angio Head/Neck wo and/or w Contrast (11/08/2024 4:33 PM EDT) Anatomical Region Laterality Modality Head and Neck Computed Tomogra phy [facility] Provider IMG CT PROCEDURES Final R esult * Echo Outside Images/Report (11/08/2024 1:59 PM EDT) Anatomical Region Laterality Modality Ultrasound [facility] Provider CV ECHO PROCEDURES Final Result * External Echo (10/27/2024 10:17 AM EDT) Anatomical Region Laterality Modality Ultrasound [facility] Provider CV ECHO PROCEDURES Final Result * (ABNORMAL) Lipid panel with reflex to direct LDL (05/23/2024 11:36 AM EST) Cholesterol 220(H) 0 - 200 mg/dL LAB CHEMISTRY METHOD 05/23/2024 5:52 PM [facility] Triglycerides 166(H) 0 - 150 mg/dL LAB CHEMISTRY METHOD 05/23/2024 5:52 PM [facility] HDL 62 >=40 mg/dL LAB CHEMISTRY METHOD 05/23/2024 5:52 PM [facility] LDL Calculated 125(H) 0 - 100 mg/dL LAB CHEMISTRY METHOD 05/23/2024 5:52 PM [facility] VLDL Cholesterol [place] 33.2 mg/dL LAB CHEMISTRY METHOD 05/23/2024 5:52 PM [facility] Non HDL Chol. (LDL+VLDL) 158(H) <145 mg/dL LAB CHEMISTRY METHOD 05/23/2024 5:52 PM [facility] Chol/HDL Ratio 3.5 0.0 - 4.4 LAB CHEMISTRY METHOD 05/23/2024 5:52 PM [facility] Blood Venous blood specimen / Unknown Venipuncture / Unknown 05/23/2024 11:36 AM EST 05/23/2024 11:36 AM EST us Oziel SANDOVAL LAB BLOOD ORDERABLES Final Re sult [facility] [address] [place] [address], * DXA BONE DENSITY STUDY 1+ SITS AXIAL SKEL (07/30/2021 9:45 AM EDT) Anatomical Region Laterality Modality Bone Densitometr y 07/27/2021 11:5 8 AM EDT Narrative 07/30/2021 1:17 PM EDT BONE DENSITY (DEXA) Lumbar Spine T-score is -1.2. (SD relative to 20-29 y/o adult) Z-score is 1.7. (SD relative to age matched peers) This is considered osteopenia by WHO criteria. Left Hip T-score is -2.1. Z-score is 0.4. This is considered osteopenia by WHO criteria. IMPRESSION: This patient is considered have osteopenia by WHO criteria. This patient has a 17% risk of major osteoporotic fracture and a 5.4% risk of hip fracture over the next 10 years. (World Health Organization Fracture Risk Assessment) The [facility] Department of Internal Medicine recommends using National Osteoporosis Foundation (NOF) guidelines in treatment decisions related to osteoporosis. NOF guidelines suggest considering treatment for postmenopausal women and men aged 50 or older presenting with the following: History of hip or vertebral fracture. T-score = -2.5 (DXA) at the femoral neck, total hip, or spine, after appropriate evaluation to exclude secondary causes. Low bone mass (T-score between -1.0 and -2.5 at the femoral neck or spine) AND a 10-year probability of a hip fracture = 3% OR a 10-year probability of a major osteoporosis-related fracture = 20% based on the [place]-adapted WHO algorithm Please note that all treatment decisions require clinical judgment and consideration of individual patient factors, including patient preferences, co-morbidities, previous drug use, risk factors not captured in the FRAX model (e.g., frailty, falls, vitamin D deficiency, increased bone turnover, interval significant decline in bone density) and possible under- or over-estimation of fracture risk by FRAX. Optional alternative screening schedule based on tomas Garcia., [facility] May 06, 2011 for patients with osteopenia (based on hip BMD T-score) is as follows: * advanced osteopenia (T scores -2.00 to -2.49), BMD testing every year * moderate osteopenia (T scores -1.50 to -1.99), BMD testing every 5 years mild osteopenia or normal BMD (T scores -1.50 and higher), BMD testing every 15 years Procedure Note Shanice Costa MD - 04/06/2022 BONE DENSITY (DEXA) Lumbar Spine T-score is -1.2. (SD relative to 20-29 y/o adult) Z-score is 1.7. (SD relative to age matched peers) This is considered osteopenia by WHO criteria. Left Hip T-score is -2.1. Z-score is 0.4. This is considered osteopenia by WHO criteria. IMPRESSION: This patient is considered have osteopenia by WHO criteria. This patienthas a 17% risk of major osteoporotic fracture and a 5.4% risk of hip fracture over the next10 years. (World Health Organization Fracture Risk Assessment) The [facility] Department of Internal Medicine recommendsusing National Osteoporosis Foundation (NOF) guidelines in treatment decisions related toosteoporosis. NOF guidelines suggest considering treatment for postmenopausal women and menaged 50 or older presenting with the following: History of hip or vertebral fracture. T-score = -2.5 (DXA) at the femoral neck, total hip, or spine, afterappropriate evaluation to exclude secondary causes. Low bone mass (T-score between -1.0 and -2.5 at the femoral neck or spine)AND a 10-year probability of a hip fracture = 3% OR a 10-year probability of a majorosteoporosis-related fracture = 20% based on the [place]-adapted WHO algorithm Please note that all treatment decisions require clinical judgment andconsideration of individual patient factors, including patient preferences, co- morbidities,previous drug use, risk factors not captured in the FRAX model (e.g., frailty, falls, vitaminD deficiency, increased bone turnover, interval significant decline in bone density) andpossible under- or over-estimation of fracture risk by FRAX. Optional alternative screening schedule based on tomas Garcia., NEJMJanuary 2011 for patients with osteopenia (based on hip BMD T-score) is as follows: * advanced osteopenia (T scores -2.00 to -2.49), BMD testing every year * moderate osteopenia (T scores -1.50 to -1.99), BMD testing every 5years mild osteopenia or normal BMD (T scores -1.50 and higher), BMD testingevery 15 years Swati Araiza DO [facility] DXA PROCEDURES Final Result from Last 3 Months or Most Recently Relevant to Health Maintenance Insurance [facility] MEDICARE ADVANTAGE Care Teams Community Development Manager Relationship Specialty Start Date End Date Kasey Anand MD [facility] [place] [address] PCP - General Internal Medicine 05/14/24
--- OUTSIDE RECORDS SUMMARY | 2025-01-15 15:53 | XMS_ITS | Clinical Summary ---
Author Organization [facility] Address [address] [place] [address] Care Team Providers Care Supervisor Filtration Name Role Phone Swati Araiza DO Primary Care Provider [phone] Allergies Active Allergy Reactions Criticality Noted Date Comments Sulfa Antibiotics 04/05/2022 Vancomycin 04/05/2022 Medications Medication Sig Dispensed Refills Start Date End Date Status apixaban (ELIQUIS) 5 MG TABS tablet Take 1 tablet (5 mg total) by mouth 2 (two) times a day. 0 03/30/2022 Active Memantine HCl ER 21 MG CP24 Take 21 mg by mouth daily. 0 03/23/2022 Active denosumab (PROLIA) injection 60 mg/mL Inject 1 mL (60 mg total) under the skin once. 0 Active citalopram (CeleXA) 10 MG tablet Take 1 tablet (10 mg total) by mouth daily. 0 Active metoprolol succinate (TOPROL-XL) 24 hr tablet 50 mg Take 1 tablet (50 mg total) by mouth daily. 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, psychotic disturbance, mood disturbance, or anxiety 04/05/2022 Cerebrovascular accident (CV A) due to thrombosis of right middle cerebral artery 04/05/2022 Nonrheumatic mitral valve regurgitation 04/05/20 22 Family History Medical History Relation Name Comments Breast cancer Daughter Cancer Daughter daughter Heart disease Father Stroke Mother Relation Name Status Comments Daughter Father Mother Social History Tobacco Use Types Packs/Day Years Used Date Smoking Tobacco: Never Smokeless Tobacco: Never Tobacco Cessation:Counseling Given: Not Answered Alcohol Use Standard Drinks/Week Comments Yes 1 (1 standard drink = 0.6 oz pur e alcohol) Sex and Gender Information Value Date Recorded Sex Assigned at Female 03/31/2022 8:36 AM EST Gender Identity Not on file Sexual Orientation Not on file Job Start Date Occupation Industry Not on file Not on file Not on file Last Filed Vital Signs Vital Sign Reading Time Taken Comments Blood Pressure 105/68 08/24/2023 10:57 AM EDT Pulse 80 08/24/2023 10:57 AM EDT Temperature 36.8 C (98.3 F) 08/24/2023 10:57 AM EDT Respiratory Rate - - Oxygen Saturation 95% 08/24/2023 10:57 AM EDT Inhaled Oxygen Concentration - - Weight 63.5 kg (140 lb) 08/24/2023 10:57 AM EDT Height - - Body Mass Index - - Plan of Treatment Health Maintenance Due Date Last Done Comments Depression Screening 1947 Preventative Health Evaluation 02/26/1954 Shingrix-Zoster Vaccine (1 of 2) 02/26/1986 Fall Risk Assessment 02/26/2001 Osteoporosis Screening (DEXA Scan) 02/26/2001 RSV Adult > 60+ Yrs or (1 - 1-dose 75+ series) 02/26/2011 COVID-19 Vaccine ( season) 2024 07/04/2020, 06/22/2020, 05/23/2020 Influenza Vaccine (#1) 2024 , 03/08/2021, 03/01/2021, Additional history exists DTap / Tdap / Td (2 - Td or Tdap) 02/29/2032 02/28/2022 Pneumococcal Vaccine Completed 06/19/2019, 12/27/2018, 06/12/2018, Additional history exists Hepatitis B Vaccines Aged Out No long er eligible based on patient's age to complete this topic RSV Ped < 20 months Aged Out No longe r eligible based on patient's age to complete this topic Additional Health Concerns Infection Onset Date Last Indicated COVID-19 Confirmed Comment:04/01/21:detected 04/02/2021 04/02/2021 Care Teams Supervisor Filtration Relationship Specialty Start Date End Date Swati Araiza DO [address] [place] [address] PCP - General Family Medicine 03/18/22
--- OUTSIDE RECORDS SUMMARY | 2025-01-15 15:53 | XMS_ITS | Clinical Summary ---
Author Organization [facility] Address [address] [place] [address] Care Team Providers Care Still Cleaner Name Role Phone Unavailable Primary Care Provider Unavailabl e Allergies Active Allergy Reactions Criticality Noted Date Comments Ceftriaxone Rash/Dermatitis Low 04/21/2021 Lactose Diarrhea Low 04/21/2021 Sulfa Antibiotics Rash/Dermatitis Low 04/21/2021 Vancomycin Rash/Dermatitis Low 04/21/2021 Medications mirtazapine (REMERON) 7.5 MG tablet Take 7.5 mg by mouth nightly. Active lisinopril (PRINIVIL,ZeSTR IL) 10 MG tablet Take 10 mg by mouth daily. Active multivitamin with minerals Tab tablet Take 1 tablet by mouth daily. Active metoPROLOL TARTRATE (LOPRESSOR) 75 MG tablet Take 100 mg by mouth 2 (two) times a day. Active atorvastatin (LIPITOR) 40 MG tablet Take 40 mg by mouth daily. Active TiZANidine (ZANAFLEX) 2 MG capsule Take 2 mg by mouth 3 (three) times a day as needed for muscle spasms. Active acetaminophen (TYLENOL) 325 MG tablet Take 325 mg by mouth every 4 (four) hours as needed for mild pain. Active HYDROcodone-rafaela taminophen (NORCO) 5-325 mg per tablet Take 1 tablet by mouth 2 times daily (every 12 hours) as needed for moderate pain or severe pain. Active apixaban (ELIQUIS) 2.5 MG tablet Take 2.5 mg by mouth 2 (two) times a day. per [facility] cardiology Active Social History Tobacco Use Types Packs/Day Years Used Date Smoking Tobacco: Never Assessed Comments Unknown Sex and Gender Information Value Date Recorded Sex Assigned at Not on file Legal Sex Female 9:17 AM EST Gender Identity Not on file Sexual Orientation Not on file Last Filed Vital Signs Vital Sign Reading Time Taken Comments Blood Pressure 145/80 06/03/2021 3:52 PM EST Pulse 50 06/03/2021 3:30 PM EST Temperature 36.7 C (98 F) 06/03/2021 3:30 PM EST Respiratory Rate 18 05/28/2021 3:07 PM EST Oxygen Saturation 98% 06/03/2021 3:30 PM EST Inhaled Oxygen Concentration - - Weight - - Height - - Body Mass Index - - Plan of Treatment Health Maintenance Due Date Last Done Comments Advance Care Planning 1935 DTaP/Tdap/Td Vaccines (1 - Tdap) 02/26/1955 Pneumococcal Vaccines 50+ (1 of 1 - PCV) 02/26/1986 Zoster (Shingles) Vaccine (1 of 2) 02/26/1986 DXA Bone Density (Females,Ages 65 and older) 02/26/2001 RSV Vaccine 60 years and older and Patients (1 - 1-dose 75+ series) 02/26/2011 Influenza Vaccine 11/16/2024 05/08/2020, 06/19/2019, 12/27/2018 COVID-19 Vaccine (3 - 2024-2 6 season) 2024 07/04/2020, 05/23/2020 Hepatitis B Vaccines Aged Out No long er eligible based on patient's age to complete this topic Insurance [employer] MGD MEDICARE
--- OUTSIDE RECORDS SUMMARY | 2025-01-15 15:53 | XMS_ITS | Encounter Summary ---
Author Organization [facility] [place] [address] Care Team Providers Care Binding Nicker Name Role Phone Kasey Anand MD Primary Care Provider Reason for Visit * Reason Onset Date Comments Prolia 12/25/2024 Encounter Details Date Type Department Care Team (Late st Contact Info) Description 12/25/2024 Telephone Endocrinology - [address] [phone] Marlin Xiong MD [address] [place] [address] Social History Tobacco Use Types Packs/Day Years [...] for your loved ones. For example, child and youth program assistant or elderly care for an older adult? [...] on file documented as of this encounter Progress Notes * Akanksha Beebe RN - 01/15/2025 8:43 AM EDT Called son Garland.advised to have labs drawn for October injection * Angelica Shay - 01/07/2025 1:10 PM EDT Patient's son Garland would like to confirm that Prolia was delivered upstairs by [facility] to our office. She is scheduled to have Prolia on 01/21. [phone] * Akanksha Beebe RN - 12/26/2024 9:16 AM EDT Called son on VR Advised labs would be ordered and need to be drawn 1-2 weeks prior to injection [facility]1 refill remaining * Akanksha Beebe RN - 12/26/2024 9:13 AM EDT Pt due for Prolia- please advise on pended labs * Angelica Shay - 12/25/2024 11:30 AM EDT Patient's son Garland is calling re: Prolia appointment on 01/21/25. He wants to confirm that he should be getting refill on Prolia through [facility], before the appointment? He wants to make surethat she has the medication in time for appointment. [phone] documented in this encounter Plan of Treatment Upcoming Encounters Date Type Department Care Team (Late st Contact Info) Description 01/21/2025 11:00 AM EDT Office Visit Endocrinology - [address] [phone] Marlin Xiong MD [address] [place] [address] 01/21/2025 12:00 PM EDT Clinical Support Endocrinology - [address] [phone] 02/14/2025 1:40 PM EDT Office Visit [facility] [address] [facility] [address] [place] [phone] Caridad Porter PA [facility] [address] [place] [address] 03/05/2025 3:30 PM EST Office Visit Adult Medicine - [place] [address] [place] [address] Oziel Preciado PA [address] [place] [address] documented as of this encounter Results * BUN (01/15/2025 11:42 AM EDT) BUN 18 5 - 25 mg/dL LAB CHEMISTRY METHOD 01/15/2025 2:24 PM EDT [facility] Blood Venous blood specimen / Unknown Venipuncture / Unknown 01/15/2025 11:42 AM EDT 01/15/2025 11:42 AM EDT Marlin Xiong MD LAB BLOOD ORDERABLES Final Resul t [facility] [address] [place] [address], * (ABNORMAL) Creatinine (01/15/2025 11:42 AM EDT) Creatinine 1.18(H) 0.50 - 1.10 mg/dL LAB CHEMISTRY METHOD 01/15/2025 2:24 PM EDT [facility] eGFR 45(L) >=60 mL/min/1. 73m2 LAB CHEMISTRY METHOD 01/15/2025 2:24 PM EDT [facility] Comment:Calculation based on the Chronic Kidney Disease Epidemiology Collaboration (CKD-EPI) equation refit without adjustment for race. Blood Venous blood specimen / Unknown Venipuncture / Unknown 01/15/2025 11:42 AM EDT 01/15/2025 11:42 AM EDT Marlin Xiong MD LAB BLOOD ORDERABLES Final Resul t Performing Organization Address City/[facility]/ZIP Co de Phone Number [facility] [address] [place] [address], [place] [phone] * (ABNORMAL) Albumin (01/15/2025 11:42 AM EDT) Albumin 3.1(L) 3.2 - 5.0 g/dL LAB CHEMISTRY METHOD 01/15/2025 2:24 PM EDT [facility] Blood Venous blood specimen / Unknown Venipuncture / Unknown 01/15/2025 11:42 AM EDT 01/15/2025 11:42 AM EDT Marlin Xiong MD LAB BLOOD ORDERABLES Final Resul t Performing Organization Address [facility] de Phone Number [facility] [address] [place] [address], [place] [phone] * Vitamin D 25 hydroxy (01/15/2025 11:42 AM EDT) Vit D, 25-Hydroxy 52.0 30.0 - 80.0 ng/mL LAB CHEMISTRY METHOD 01/15/2025 3:13 PM EDT [facility] Blood Venous blood specimen / Unknown Venipuncture / Unknown 01/15/2025 11:42 AM EDT 01/15/2025 11:42 AM EDT Marlin Xiong MD LAB BLOOD ORDERABLES Final Resul t Performing Organization Address City/[facility]/ZIP Co de Phone Number [facility] [address] [place] [address], [place] [phone] * (ABNORMAL) Calcium (01/15/2025 11:42 AM EDT) Calcium 11.2(H) 8.5 - 10.5 mg/dL LAB CHEMISTRY METHOD 01/15/2025 2:24 PM EDT [facility] Blood Venous blood specimen / Unknown Venipuncture / Unknown 01/15/2025 11:42 AM EDT 01/15/2025 11:42 AM EDT us Marlin Xiong MD LAB BLOOD ORDERABLES Final Resul t [facility] [address] [place] [address], documented in this encounter Visit Diagnoses Diagnosis Age-related osteoporosis without current pathological fracture- Primary documented in this encounter Additional Health Concerns Assessment Noted Time PHQ-9 Depression Total Score: 0 05/23/19 8:26 AM EST A fall risk assessment has been complete d for the patient 05/23/2024 10:30 AM EST documented as of this encounter Care Teams Binding Nicker Relationship Specialty Start Date End Date Kasey Anand MD [address] [place] [address] PCP - General Internal Medicine 05/14/24 documented as of this encounter
== END 2025-01-15 15:39 | disposition home or self-care (01) ==
LOC: HO.HSMS 14:27
PROVIDERS: PCP Student in an Organized Health Care Education/Training Program; Visit Provider Psychiatry & Neurology Neurology
DX: R41.89 Other symptoms and signs involving cognitive functions and awareness (principal); F32.A Depression, unspecified; G47.33 Obstructive sleep apnea (adult) (pediatric)
CPT/HCPCS: 99214

== ENCOUNTER 2025-02-28 12:42 | Outpatient (AMB) | payer OTHER, SELFPAY ==
--- NOTE | 2025-02-28 12:46 | A.OFFVIS_ITS ---
Vital Signs 02/28/25 12:55 Height 5 ft Weight 129 lb 8 oz BMI 25.3 BP 98/62 Blood Pressure Location Rt brachial Position Sitting Pulse 85 Pulse Source Pulse Oximeter Pulse Oximetry (%) 99 Oxygen Delivery Method Room Air Intake Visit Reasons: F/U (CONF.) Intake Note: Cognitive disorder, Depression and TASHIA Heavy Equipment Rental Associate Required: No Accompanied by: Son Allergies Sulfa (Sulfonamide Antibiotics) Adverse Reaction (Severe, Verified 02/28/25 12:46) Rash vancomycin Adverse Reaction (Severe, Verified 02/28/25 12:46) Rash ceftriaxone Adverse Reaction (Unknown, Verified 02/28/25 12:46) Unknown HPI Comments Details: 89y/o female comes for follow up of dementia.she did not tolerate mirtazepine - very agitated and irritable. she is on ensure plus now which is helping her to gain weight No falls In October 2024 she was admitted for failure to thrive . she refuses to eat and drinks 2 ensures she is refusing to eat sweets . Memantine and metroprolol was stopped as her blood pressure was low. she has hearing aids and it helps.Her short term memory is worse. History from last visit:she is accompanied by her son who helps with history. Her memory issues started about 6 years ago. 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 She started with short term memory issues and now also has long term care pharmacist issues.she has trouble remembering medications,has trouble recalling peoples names,has trouble remembering significant events( forgets trips, forgot she had stroke).she like watching sports but usually has trouble remembering. she is independent in most ADLs. her daughter in law helps with getting in and out of shower. she needs reminding to dress. 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 she sleeps 1 2hrs a day. she snores loudly . [facility] Medical History Obstructive sleep apnea Depression Hypersomnolence Loud snoring Cognitive disorder Uterine myoma Mitral regurgitation Lumbar spondylosis Hypothyroidism Gall stones Diverticulosis CAD (coronary artery disease) Atrial fibrillation Surgical History S/P removal of parathyroid gland H/O lithotripsy Hx of appendectomy Family History Mother Stroke Father Myocardial infarct Daughter Breast cancer Social History Alcohol intake: current Alcohol intake frequency: holidays/special occasions only Patient Tobacco Use Status: Never used Tobacco Physical Exam Vital Signs: Last Vital Signs Pulse 85 02/28/25 12:55 BP 98/62 02/28/25 12:55 Pulse Ox 99 02/28/25 12:55 Oxygen Delivery Method Room Air 02/28/25 12:55 BMI result Body Mass Index 25.3 HEENT Head: Yes normal to inspection and Yes normocephalic Eyes Pupils: Equal, round and reactive pupils present Neuro General: tone normal, moves all extremities and no focal motor deficits Cranial nerves: Yes Facial sensation intact/muscles of mastication intact, Yes Equal, round and reactive pupils present, Yes Bilaterally intact EOM present, Yes Nystagmus not present, Yes Normal facial strength present and Yes Midline tongue present Cognition (Neuro): abnormal cognition Coordination: [id number] test normal Assessment & Plan Assessment & Plan (1) Cognitive disorder: Comment: multifactorial - mood, ? sleep apnea ? low blood pressure- mOCA 18/30 Code(s): F09 - Unspecified mental disorder due to known physiological condition Category: Medical (2) Depression: Code(s): F32.A - Depression, unspecified Category: Medical Qualifiers: Depression Type: unspecified Qualified Code(s): F32.A - Depression, unspecified (3) Obstructive sleep apnea: Code(s): G47.33 - Obstructive sleep apnea (adult) (pediatric) Category: Medical Plan Suggested BENECALORIE- 1-2 per day to help with calorie intake. Discussed about increasing physical activity - she is doing better with home therapy Hearing aids Coding Level of Care Code Est Pt Level 4 (57787) Diagnoses Cognitive disorder F09 Depression, unspecified depression type F32.A Depression Type: unspecified Obstructive sleep apnea G47.33
[2025-02-28 12:55] VITALS: BP 98/62; PULSE 85; O2SAT 99; BMI 25.3
--- OUTSIDE RECORDS SUMMARY | 2025-02-28 15:48 | XMS_ITS | Encounter Summary ---
Author Organization [facility] [place] [address] Care Team Providers Care Computer Systems Consultant Name Role Phone Kasey Anand MD Primary Care Provider Encounter Details Date Type Department Care Team (Late st Contact Info) Description 02/18/2025 Results Follow-Up Endocrinology - [address] [phone] Marlin Xiong MD [address] [place] [address] Social History Tobacco Use Types Packs/Day Years [...] for your loved ones. For example, child welfare worker or elderly care for an older adult? [...] on file documented as of this encounter Plan of Treatment Upcoming Encounters Date Type Department Care Team (Late st Contact Info) Description 03/05/2025 3:30 PM EST Office Visit Adult Medicine - [place] [address] [place] [address] Oziel Preciado PA [address] [place] [address] 06/13/2025 1:10 PM EST Office Visit [facility] [address] [place] [phone] Caridad Porter PA [address] [place] [address] [address] [place] [address] documented as of this encounter Visit Diagnoses Not on filedocumented in this encounter Additional Health Concerns Assessment Noted Time PHQ-9 Depression Total Score: 0 05/23/19 8:26 AM EST A fall risk assessment has been complete d for the patient 05/23/2024 10:30 AM EST documented as of this encounter Care Teams Computer Systems Consultant Relationship Specialty Start Date End Date Kasey Anand MD [address] [place] [address] PCP - General Internal Medicine 05/14/24 documented as of this encounter
--- OUTSIDE RECORDS SUMMARY | 2025-02-28 15:48 | XMS_ITS | Encounter Summary ---
Author Organization [facility] [place] [address] Care Team Providers Care Casting Machine Operator Name Role Phone Kasey Anand MD Primary Care Provider Encounter Details Date Type Department Care Team ([facility] st Contact Info) Description 01/22/2025 Results Follow-Up Endocrinology - [address] [address] Marlin Xiong MD [address] [place] [address] Social History Tobacco Use Types Packs/Day Years [...] care for your loved ones. For example, childcare worker or elderly care for an older [...] PM EST Office Visit Adult Medicine - [place] [address] [place] [address] Oziel Preciado PA [address] [place] [address] 06/13/2025 1:10 PM EST Office Visit [facility] [address] [place] [phone] Caridad Porter PA [address] [place] [address] [address] [place] [address] documented as of this encounter Visit Diagnoses Not on filedocumented in this encounter Additional Health Concerns Assessment Noted Time PHQ-9 Depression Total Score: 0 05/23/19 8:26 AM EST A fall risk assessment has been complete d for the patient 05/23/2024 10:30 AM EST documented as of this encounter Care Teams Casting Machine Operator Relationship Specialty Start Date End Date Kasey Anand MD [address] [place] [address] PCP - General Internal Medicine 05/14/24 documented as of this encounter
--- OUTSIDE RECORDS SUMMARY | 2025-02-28 15:48 | XMS_ITS | Encounter Summary ---
Author Organization [facility] [place] [address] Care Team Providers Care Bonus Clerk Name Role Phone Kasey Anand MD Primary Care Provider Encounter Details Date Type Department Care Team ([facility] st Contact Info) Description 01/16/2025 Results Follow-Up Endocrinology - [address] [address] Marlin Xiong MD [address] [place] [address] Social History Tobacco Use Types Packs/Day Years [...] care for your loved ones. For example, manager child or elderly care for an older adult? [...] Progress Notes * Akanksha Beebe RN - 01/18/2025 1:30 PM EDT Called son, no answer, VM left +ID * Angelica Shay - 01/18/2025 12:51 PM EDT Patient's son Garland is calling to follow up re: below. He was under the impression patient was supposed to repeat labs in 2 weeks and reschedule f/u and Prolia? He is requesting RN call back to discuss further and advise if she is to keep appointments on Tuesday [phone] documented in this encounter Plan of Treatment Upcoming Encounters Date Type Department Care Team (Late st Contact Info) Description 03/05/2025 3:30 PM EST Office Visit Adult Medicine - [place] [address] [place] [address] Oziel Preciado PA [address] [place] [address] 06/13/2025 1:10 PM EST Office Visit [facility] - [facility] [address] [facility] [address] [place] [phone] Caridad Porter PA [address] [place] [address] [place] [address] documented as of this encounter Visit Diagnoses Not on filedocumented in this encounter Additional Health Concerns Assessment Noted Time PHQ-9 Depression Total Score: 0 05/23/19 8:26 AM EST A fall risk assessment has been complete d for the patient 05/23/2024 10:30 AM EST documented as of this encounter Care Teams Bonus Clerk Relationship Specialty Start Date End Date Kasey Anand MD [address] [place] [address] PCP - General Internal Medicine 05/14/24 documented as of this encounter
--- OUTSIDE RECORDS SUMMARY | 2025-02-28 15:49 | XMS_ITS | Clinical Summary ---
Author Organization [facility] Address [address] [place] [address] Care Team Providers Care Professor Of Environmental Studies Name Role Phone Swati Araiza DO Primary Care Provider [phone] Allergies Active Allergy Reactions Criticality Noted Date [...] COVID-19 Confirmed Comment:04/01/21:detected 04/02/2021 04/02/2021 Care Teams Professor Of Environmental Studies Relationship Specialty Start Date End Date Swati Araiza DO [address] [place] [address] PCP - General Family Medicine 03/18/22
--- OUTSIDE RECORDS SUMMARY | 2025-02-28 15:49 | XMS_ITS | Clinical Summary ---
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 Active cholecalciferol (VITAMIN D-3) 50 mcg (2,000 unit) tablet Take 1 tablet (2,000 Units total) by mouth 1 (one) time each day. Active multivitamin with minerals tablet Take 1 tablet by mouth 1 (one) time each day. Active acetaminophen (TYLENOL) 325 mg tablet Take by mouth every 6 (six) hours if needed for mild pain. Active methenamine hippurate (HIPREX) 1 gram tabletIndicatio ns:Urinary tract infection, site not specified TAKE 1 TABLET BY MOUTH EVERY DAY 90 tablet 5 Active apixaban (Eliquis) 2.5 mg tablet Take 1 tablet (2.5 mg total) by mouth 2 (two) times a day. 180 each 1 5 05/15/19 26 Active midodrine (PROAMATINE) 5 mg tablet Take 1 tablet (5 mg total) by mouth 2 (two) times a day. 180 each 1 5 05/15/19 26 Active midodrine (PROAMATINE) 5 mg tablet TAKE 1 TABLET BY MOUTH TWICE A DAY 180 tablet 1 5 02/15/20 25 Discontinu ed(Reorder ) Eliquis 2.5 mg tablet TAKE 1 TABLET BY MOUTH TWICE A DAY 180 tablet 3 5 02/15/20 25 Discontinu ed(Reorder ) Active Problems Problem Noted Date Diagnosed Date Permanent atrial fibrillation ([facility] V24, CMS/ HCC V28) 02/14/2025 History of CVA (cerebrovascular accident) 2024 Depression 05/23/2024 Age-related osteoporosis wit hout current pathological fracture 05/23/2024 Chronic midline low back pain 04/05/2022 Moderate late onset Alzheime r's dementia without behavioral disturbance, psychotic disturbance, mood disturbance, or anxiety (CMS/HCC V24, CMS/HCC V28) 04/05/2022 Cerebrovascular accident (CV A) due to thrombosis of right middle cerebral artery (CMS/HCC V24, CMS/HCC V28) 04/05/2022 Nonrheumatic mitral valve regurgitation 04/05/20 22 Assessment & Plan (11/14/2024 5:59 AM EDT): Axillary lymphadenopathy 12/27/2018 Resolved Problems Problem Noted Date Diagnosed Date Resolved Date Paroxysmal atrial fibrillati on (CMS/HCC V24, CMS/HCC V28) 04/05/2022 02/14/2025 Encounters Date Type Department Care Team Description 02/18/2025 Results Follow-Up Endocrinology - [address] [phone] Marlin Xiong MD 02/14/2025 1:40 PM EDT Office Visit [facility] - [address] [place] [address] Caridad Porter PA Nonrheumatic mitral valve regurgitation (Primary Dx); Paroxysmal atrial fibrillation (CMS/HCC V24, CMS/HCC V28); Permanent atrial fibrillation (CMS/HCC V24, CMS/HCC V28) 01/29/2025 4:30 PM EDT Office Visit Endocrinology - [address] [phone] Marlin Xiong MD Age-related osteoporosis without current pathological fracture (Primary Dx) 01/22/2025 Results Follow-Up Endocrinology - [address] [phone] Marlin Xiong MD 01/21/2025 12:00 PM EDT Clinical Support [facility] - [address] [phone] Age-related osteoporosis without current pathological fracture (Primary Dx) 01/16/2025 Results Follow-Up [facility] - [address] [phone] Marlin Xiong MD 01/11/2025 10:50 AM EDT - 01/11/2025 11:59 PM EDT Hospital Encounter [facility] - [address] [phone] Age-related osteoporosis without current pathological fracture Discharge Disposition: Home or Self Care 12/25/2024 Telephone Endocrinology - [address] [phone] Marlin Xiong MD 11/29/2024 2:45 PM EDT Office Visit Adult Medicine [address] [phone] Kasey Anand MD Moderate late onset Alzheimer's dementia without behavioral disturbance, psychotic disturbance, mood disturbance, or anxiety (CMS/HCC V24, CMS/HCC V28) (Primary Dx); Paroxysmal atrial fibrillation (CMS/HCC V24, CMS/HCC V28); Hypotension, unspecified hypotension type from Last 3 Months Immunizations Immunization Administration [...] parathyroid APPENDECTOMY PROCEDURE: HISTORICAL APPENDECTOMY APPENDECTOMY PROCEDURE: [place] APPENDECTOMY Medical History Medical History Date Comments Atrial fibrillation ([facility] V24, [facility] V28) DX:Atrial fibrillation (HCC) Stroke ([facility] V24, [facility] V28) DX:Stroke (HCC) Kidney stones 05/04/2018 DX:Kidney stones ; COMMENT: S/p lithotripsy,laser surgery. Atrial fibrillation ([facility] V24, [facility] V28) 05/04/2018 DX:Atrial fibrillation (HCC) ; COMMENT: Diagnosed 3 years back on Eliquis 2.5mg bid Gall stones 05/11/2018 DX:Gall stones Hydronephrosis of right kidney 06/01/2018 D X:Hydronephrosis of right kidney; COMMENT: Mild Aorto-iliac atherosclerosis ([facility] V24) 06/01/2018 DX:Aorto-iliac atheroscleros is (HCC); COMMENT: [...] do you feel lonely or isolated from ose around you? Never 05/23/2024 Food Risk [...] your loved ones. For example, child care group leader or elderly care for an older adult? [...] Sign Reading Time Taken Comments Blood Pressure 98/58 02/14/2025 1:38 PM EDT Pulse 83 02/14/2025 1:38 PM EDT Temperature 36 C (96.8 F) 01/21/2025 12:12 PM EDT Respiratory Rate 15 01/29/2025 4:22 PM EDT Oxygen Saturation 98% 02/14/2025 1:38 PM EDT Inhaled Oxygen Concentration - - Weight 60.1 kg (132 lb 9.6 oz) 02/14/2025 1:38 P M EDT Height 149.9 cm (4' 11 ) 02/14/2025 1:38 PM EDT Body Mass Index 26.78 02/14/2025 1:38 PM EDT Plan of Treatment Upcoming Encounters Date Type Department Care Team (Late st Contact Info) Description 03/05/2025 3:30 PM EST Office Visit Adult Medicine - [place] [address] [place] [phone] Oziel Preciado PA [address] [place] [address] 06/13/2025 1:10 PM EST Office Visit [facility] - [facility] [address] [facility] [address] [place] [phone] Caridad Porter PA [address] [place] [address] [place] [phone] Health Maintenance Due Date Last Done Comments [...] 05/23/2025 05/23/2024 Hypertension/CHF/CAD Annual BMP Blood Test 02/06/2026 02/06/2025, 01/15/2025, 07/16/2024, Additional history exists Cholesterol Screening (Lipid Panel) 05/23/2029 05/23/2024, 01/17/2024, 10/18/2019 DTaP,Tdap,and Td Vaccines (2 - Td or Tdap) 02/29/2032 02/28/2022 Osteoporosis Screening (Bone Density Screening) 01/11/2035 01/11/2025, 07/30/2021 Pneumococcal Vaccine: 50+ Years Completed 06/19/2019, 12/27/2018, [...] Procedure Name Priority Date/Time Associated Diagnosis Comments PARATHYROID HORMONE INTACT Routine 02/06/2025 2:37 PM EDT Age-related osteoporosis without current pathological fracture CREATININE, SERUM Routine 02/06/2025 2:3 7 PM EDT Age-related osteoporosis without current pathological fracture BUN Routine 02/06/2025 2:37 PM EDT Age-related osteoporosis without current pathological fracture ALBUMIN Routine 02/06/2025 2:37 PM EDT Age-related osteoporosis without current pathological fracture CALCIUM Routine 02/06/2025 2:37 PM EDT Age-related osteoporosis without current pathological fracture BUN Routine 01/15/2025 11:42 AM EDT Age-related [...] EDT Age-related osteoporosis without current pathological fracture BD BONE DENSITY DXA AXIAL SKELETON Routine 01/11/2025 11:17 AM EDT Age-related osteoporosis without current pathological fracture LIPID PANEL WITH REFLEX TO DIRECT LDL Routine 05/23/2024 11:36 AM EST Medicare annual wellness visit, subsequent Moderate late onset Alzheimer's dementia without behavioral disturbance, psychotic disturbance, mood disturbance, or anxiety ([facility]/HCC V24, CMS/[facility] V28) Paroxysmal atrial fibrillation (CMS/HCC V24, CMS/[facility] V28) Nonrheumatic mitral valve regurgitation Age-related osteoporosis without current pathological fracture Depression, unspecified depression type History of CVA (cerebrovascular accident) Encounter for lipid screening for cardiovascular disease from Last 3 Months or Most Recently Relevant to Health Maintenance Results * (ABNORMAL) Creatinine (02/06/2025 2:37 PM EDT) Only the most recent of2 resultswithin the time period is included. Creatinine 1.09 0.50 - 1.10 mg/dL LAB CHEMISTRY METHOD 02/06/2025 5:49 PM EDT [facility] eGFR 49(L) >=60 mL/min/1. 73m2 LAB CHEMISTRY METHOD 02/06/2025 5:49 PM T [facility] Comment:Calculation based on the Chronic Kidney Disease Epidemiology Collaboration (CKD-EPI) equation refit without adjustment for race. Blood Venous blood specimen / Unknown Venipuncture / Unknown 02/06/2025 2:37 PM EDT 02/06/2025 2:37 PM EDT us Marlin Xiong MD LAB BLOOD ORDERABLES Final Resul t Performing Organization Address City/[facility] Co de Phone Number [facility] [address] [place] [address], [place] [phone] * BUN (02/06/2025 2:37 PM EDT) Only the most recent of2 resultswithin the time period is included. BUN 22 5 - 25 mg/dL LAB CHEMISTRY METHOD 02/06/2025 5:49 PM EDT [facility] Blood Venous blood specimen / Unknown Venipuncture / Unknown 02/06/2025 2:37 PM EDT 02/06/2025 2:37 PM EDT us Marlin Xiong MD LAB BLOOD ORDERABLES Final Resul t Performing Organization Address [facility] de Phone Number [facility] [address] [place] [address], [place] [phone] * (ABNORMAL) Parathyroid hormone intact (02/06/2025 2:37 PM EDT) PTH 106.4(H) 18.5 - 88.0 pcg/mL LAB CHEMISTRY METHOD 02/06/2025 6:21 PM EDT [facility] Blood Venous blood specimen / Unknown Venipuncture / Unknown 02/06/2025 2:37 PM EDT 02/06/2025 2:37 PM EDT us Marlin Xiong MD LAB BLOOD ORDERABLES Final Resul t Performing Organization Address [facility] de Phone Number [facility] [address] [place] [address], [place] [phone] * Calcium (02/06/2025 2:37 PM EDT) Only the most recent of2 resultswithin the time period is included. Calcium 10.2 8.5 - 10.5 mg/dL LAB CHEMISTRY METHOD 02/06/2025 5:49 PM EDT [facility] Blood Venous blood specimen / Unknown Venipuncture / Unknown 02/06/2025 2:37 PM EDT 02/06/2025 2:37 PM EDT us Marlin Xiong MD LAB BLOOD ORDERABLES Final Resul t Performing Organization Address City/[facility]/ZIP Co de Phone Number [facility] [address] [place] [address], [place] [phone] * (ABNORMAL) Albumin (02/06/2025 2:37 PM EDT) Only the most recent of2 resultswithin the time period is included. Albumin 3.1(L) 3.2 - 5.0 g/dL LAB CHEMISTRY METHOD 02/06/2025 5:49 PM EDT [facility] Blood Venous blood specimen / Unknown Venipuncture / Unknown 02/06/2025 2:37 PM EDT 02/06/2025 2:37 PM EDT us Marlin Xiong MD LAB BLOOD ORDERABLES Final Resul t Performing Organization Address City/[facility]/ZIP Co de Phone Number [facility] [address] [place] [address], [place] [phone] * Vitamin D 25 hydroxy (01/15/2025 11:42 AM EDT) Vit D, 25-Hydroxy 52.0 30.0 - 80.0 ng/mL LAB CHEMISTRY METHOD 01/15/2025 3:13 PM EDT [facility] Blood Venous blood specimen / Unknown Venipuncture / Unknown 01/15/2025 11:42 AM EDT 01/15/2025 11:42 AM EDT Marlin Xiong MD LAB BLOOD ORDERABLES Final Resul t [facility] [address] [facility] [place] [address], * BD Bone Density DXA Axial Skeleton (01/11/2025 11:17 AM EDT) Anatomical Region Laterality Modality Wrist, Hip, L-spine Bone Densito metry 01/20/2025 11:2 9 PM EDT Impressions 01/20/2025 11:32 PM EDT Impression: Osteopenia by WHO criteria. This patient has a 13% risk of major osteoporotic fracture and a 4% risk of hip fracture over the next 10 years. (World Health Organization Fracture Risk Assessment) [facility] Department of Internal Medicine recommends using [...] alternative screening schedule based on tomas Garcia., [facility] May 06, 2011 for patients with osteopenia (based on hip BMD T-score) is as follows: * advanced osteopenia (T scores -2.00 to -2.49), BMD testing every year * moderate osteopenia (T scores -1.50 to -1.99), BMD testing every 5 years mild osteopenia or normal BMD (T scores -1.50 and higher), BMD testing every 15 years -------- FINAL REPORT -------- Dictated By: Coby Martinez Dictated Date: 01/20/2025 23:29 ET Assigned Physician: Coby Martinez Reviewed and Electronically Signed By: Coby Martinez Signed Date: 01/20/2025 23:32 ET Workstation ID: [id number] Transcribed By: Self Edit Transcribed Date: 01/20/2025 23:29 ET Narrative 01/20/2025 11:32 PM EDT BONE DENSITY (DEXA) Lumbar Spine T-score is -0.2. (SD relative to 20-29 y/o adult) Z-score is 2.7. (SD relative to age matched peers) This is considered normal by WHO criteria. Left Hip T-score is -1.9. Z-score is 0.7. This is considered osteopenia by WHO criteria. Procedure Note Coby Martinez MD - 01/20/2025 BONE DENSITY (DEXA) Lumbar Spine T-score is -0.2. (SD relative to 20-29 y/o adult) Z-score is 2.7. (SD relative to age matched peers) This is considered normal by WHO criteria. Left Hip T-score is -1.9. Z-score is 0.7. This is considered osteopenia by WHO criteria. IMPRESSION: Impression: Osteopenia by WHO criteria. This patient has a 13% risk of major osteoporotic fracture and a 4% riskof hip fracture over the next 10 years. (World Health OrganizationFracture Risk Assessment) [facility] Department of Internal Medicine recommendsusing National Osteoporosis Foundation (NOF) guidelines in treatmentdecisions related to osteoporosis. NOF guidelines suggest consideringtreatment for postmenopausal women and men aged 50 or older presentingwith the following: History of hip or vertebral fracture. T-score = -2.5 (DXA) at the femoral neck, total hip, or spine, afterappropriate evaluation to exclude secondary causes. Low bone mass (T-score between -1.0 and -2.5 at the femoral neck or spine)AND a 10-year probability of a hip fracture = 3% OR a 10-year probabilityof a major osteoporosis-related fracture = 20% based on the [place]-adapted WHOalgorithm Please note that all treatment decisions require clinical judgment andconsideration of individual patient factors, including patientpreferences, co-morbidities, previous drug use, risk factors not capturedin the FRAX model (e.g., frailty, falls, vitamin D deficiency, increasedbone turnover, interval significant decline in bone density) and possibleunder- or over-estimation of fracture risk by FRAX. Optional alternative screening schedule based on tomas Garcia., NEJJanuary 2011 for patients with osteopenia (based on hip BMD T-score)is as follows: * advanced osteopenia (T scores -2.00 to -2.49), BMD testing every year * moderate osteopenia (T scores -1.50 to -1.99), BMD testing every 5years mild osteopenia or normal BMD (T scores -1.50 and higher), BMD testingevery 15 years -------- FINAL REPORT -------- Dictated By: Coby Martinez Dictated Date: 01/20/2025 23:29 ET Assigned Physician: Coby Martinez Reviewed and Electronically Signed By: Coby Martinez Signed Date: 01/20/2025 23:32 ET Workstation ID: [id number] Transcribed By: Self Edit Transcribed Date: 01/20/2025 23:29 ET Marlin Xiong MD [facility] DXA PROCEDURES Final Result * (ABNORMAL) Lipid panel with reflex to direct LDL (05/23/2024 11:36 AM EST) [facility] Cholesterol 220(H) 0 - 200 mg/dL LAB CHEMISTRY METHOD 05/23/2024 5:52 PM EST [facility] Triglycerides 166(H) 0 - 150 mg/dL LAB CHEMISTRY METHOD 05/23/2024 5:52 PM EST [facility] HDL 62 >=40 mg/dL LAB CHEMISTRY METHOD 05/23/2024 5:52 PM EST [facility] LDL Calculated 125(H) 0 - 100 mg/dL LAB CHEMISTRY METHOD 05/23/2024 5:52 PM EST [facility] VLDL Cholesterol Gabo 33.2 mg/dL LAB CHEMISTRY METHOD 05/23/2024 5:52 PM EST [facility] Non HDL Chol. (LDL+VLDL) 158(H) <145 mg/dL LAB CHEMISTRY METHOD 05/23/2024 5:52 PM EST [facility] Chol/HDL Ratio 3.5 0.0 - 4.4 LAB CHEMISTRY METHOD 05/23/2024 5:52 PM EST [facility] Blood Venous blood specimen / Unknown Venipuncture / Unknown 05/23/2024 11:36 AM EST 05/23/2024 11:36 AM EST Oziel SANDOVAL LAB BLOOD ORDERABLES Final Re sult [facility] [address] [place] [address], from Last 3 Months or Most Recently Relevant to Health Maintenance Insurance [employer] MED[employer]ARE [employer]VANTAGE Care Teams Steam Table Worker Relationship Specialty Start Date End Date Kasey Anand MD [address] [place] [phone] PCP - General Internal Medicine 05/14/24
--- OUTSIDE RECORDS SUMMARY | 2025-02-28 15:49 | XMS_ITS | Clinical Summary ---
Author Organization [facility] Address [address] [place] [id number] Care Team Providers Care Floor Person Name Role Phone Unavailable Primary Care Provider [...] (two) times a day. per Caridad Jeong [facility] [place] cardiology Active Social History Tobacco Use Types [...] (Females,Ages 65 and older) 02/26/2001 RSV Vaccine 50 years and older and Patients (1 - 1-dose 75+ series) 02/26/2011 Influenza Vaccine 11/16/2024 05/08/2020, 06/19/2019, 12/27/2018 COVID-19 Vaccine (3 - 2024-2 6 season) 2024 07/04/2020, 05/23/2020 Hepatitis B Vaccines Aged Out No long er eligible based on patient's age to complete this topic Insurance [employer] MEDICARE
== END 2025-02-28 13:22 | disposition home or self-care (01) ==
LOC: HO.HSMS 12:43
PROVIDERS: PCP Student in an Organized Health Care Education/Training Program; Visit Provider Psychiatry & Neurology Neurology
DX: R41.89 Other symptoms and signs involving cognitive functions and awareness (principal); F32.A Depression, unspecified; G47.33 Obstructive sleep apnea (adult) (pediatric)
CPT/HCPCS: 99214